=== PATIENT | male | born 1960 | race Caucasian/White ===

== ENCOUNTER 2024-03-14 08:12 | Outpatient (AMB) | payer BC, SELFPAY ==
--- NOTE | 2024-03-14 08:14 | MHC.OFFVIS ---
Vital Signs 03/14/24 08:21 Height 6 ft 10 in Weight 186 lb BMI 19.4 BP 113/79 Blood Pressure Location Rt brachial Position Standing Pulse 104 H Intake Visit Reasons: anal fissures Intake Note: This patient presents for an assessment for anal fissure. Patient c/o; reports excruciating pain, reports no able to sleep, stand or sit, reports Hx sphincterotomy at [facility] 09/11/2023. 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 He states that he had anal fissure surgery in [facility] about 6 months ago. He says that since that time, he has been having this severe constant pain in his anus. He says that this does not seem to be worse with bowel movements. He says the pain is constant and sharp would move from 1 place to the other in his anus He denies seeing blood per rectum. He says that he had been on different medications for this without any relief. He denies being constipated although he has been on Colace. He says that he was admitted to a Behavioral Health unit recently as well because of anxiety and depression. He said that he had seen a psychiatrist for this. [facility] Medical History (Updated 03/14/24 @ 08:37 by Samir Call MD) Anal pain Surgical History Hx of surgical procedure (~09/11/23) Social History Alcohol intake: former Patient Tobacco Use Status: Current everyday Tobacco user Cigarettes Per Day: 10 Substance Use Type: Marijuana Review of Systems Const Denies chills and Denies fever(s) Card Denies chest pain, Denies dyspnea and Denies dyspnea on exertion Resp Denies cough, Denies dyspnea and Denies dyspnea on exertion GI Denies hematochezia and Denies change in bowel habits Denies hematuria and Denies difficulty urinating Musc Denies back pain and Denies limited range of motion Neuro Denies focal weakness and Denies convulsions Psych Details: Severe anxiety and depression Reports anxiety, Reports depression and Denies mood swings Physical Exam Vital Signs: Last Vital Signs Pulse 104 H 03/14/24 08:21 BP 113/79 03/14/24 08:21 BMI result Body Mass Index 19.4 Const Other: Appears extremely anxious, crying General: comfortable Orientation/consciousness: patient oriented x3 Neck Neck: Yes no lymphadenopathy Resp Auscultation: clear to auscultation bilaterally Cardio Rhythm: regular rhythm GI Other: No perianal lesion, retraction of the anal canal does not reveal any obvious posterior midline fissure. Digital rectal exam was done with note of some hypertonicity but he was able to tolerate this. There was no specific area with tenderness. There was no induration. In view of his pain I did not do an anoscopy at this time. There was no blood on the exam finger Palpation (GI): Soft to palpation, nontender and no guarding Neuro General: patient oriented x3 Assessment & Plan Assessment & Plan (1) Anal pain: Code(s): K62.89 - Other specified diseases of anus and rectum Category: Medical Plan: He has had anal pain for more than 6 months now. I was able to retrieve records from [facility] and he had lateral internal sphincterotomy last August,. He states that he has persistent and severe anal pain since that time He does have some hypertonicity although this is not severe. I do not see any obvious posterior midline fissure I will try him on Rectiv again. I told him that it would be best to have good control of his symptoms as this can aggravate his pain level I will see him again in the office in about 2-3 weeks. He is comfortable with the plan. There is a chance that we may need to repeat an exam under anesthesia down the line. Medications: New nitroglycerin 0.4%(w/w) (Rectiv) 1 inch MO BID 30 grams 0RF apply to anal area 3 weeks Coding Level of Care Code New Pt Level 3 (54021) Diagnoses Anal pain K62.89
[2024-03-14 08:21] VITALS: BP 113/79; PULSE 104; BMI 19.4
== END 2024-03-14 08:37 | disposition home or self-care (01) ==
PROVIDERS: PCP Internal Medicine; Visit Provider Surgery
DX: K62.89 Other specified diseases of anus and rectum (principal)
CPT/HCPCS: 99203

== ENCOUNTER → 2024-03-14 08:12 | Outpatient (BNVA) | payer MEDICARE, BC, SELFPAY | PROVIDERS: PCP Internal Medicine; Visit Provider Surgery ==

== ENCOUNTER 2024-07-18 10:11 | Inpatient (IN) | payer MEDICARE, SELFPAY ==
[2024-07-18] VITALS (8 sets, daily range): BP systolic 95–182; BP diastolic 69–89; PULSE 54–111; RESP 14–24; TEMP 36–36.9; O2SAT 97–99; BMI 24.4
--- NOTE | ~2024-07-18 | CT_ITS ---
EXAMINATION: CT PELVIS WITH CONTRAST CLINICAL INFORMATION: Severe left-sided rectal pain. COMPARISON: None available. TECHNIQUE: Helical scanning was performed with submillimeter collimation through the pelvis with the use of oral contrast and during bolus intravenous injection of 85 mL of Omnipaque 350 intravenous contrast. Sagittal and coronal multiplanar 2-D reconstructions were obtained. This CT examination was performed using dose optimization techniques as appropriate, variously including the following: *Automated exposure control *Adjustment of mA and/or kV according to patient size (this includes techniques or standardized protocols for targeted exams where dose is matched to indication/reason for exam; i.e. extremities or head) *Use of iterative reconstruction technique DLP: 230 mGy-cm FINDINGS: Gastrointestinal: Numerous diverticula of the sigmoid colon with mild diffuse thickening of the bowel wall. Small area of subtle edema in the pericolonic fat at the mid sigmoid. Possible mild diverticulitis. No perforation or abscess. No bowel obstruction. Moderate volume stool in the colon. Visualized small bowel loops unremarkable. The appendix is nonvisualized. Bladder: Unremarkable. Pelvic structures: Prostate enlarged measuring 6 cm transverse. Coarse calcifications in the prostate. Vascular: Scattered vascular wall calcifications. No aneurysm. Abdominal wall: No ventral wall hernia or inguinal hernia. Other: Partially visualized cystic lesion with peripheral calcification lower pole right kidney measuring 2.7 cm. This can be further evaluated with CT renal exam. Lymph nodes: No significant lymphadenopathy. Skeletal: Mild degenerative change at the lumbosacral junction. No acute osseous abnormality. CT/CT pelvis w IV con IMPRESSION: 1. Numerous diverticula of the sigmoid colon with mild diffuse thickening of the bowel wall. Small area of subtle edema in the pericolonic fat at the mid sigmoid. Possible mild diverticulitis. No perforation or abscess. 2. Partially visualized cystic lesion with peripheral calcification lower pole right kidney measuring 2.7 cm. This can be further evaluated with CT renal exam. Electronically signed by: Tyler Hernandez MD 07/18/2024 04:18 PM EDT
[2024-07-18 10:46] LABS: MANUAL DIFF FLAG NO
[2024-07-18 10:50] LABS: Basophils Absolute Auto 0.1 X10*3/uL (0.0-0.2); Basophils Percent Auto 0.8 % (0-2); Eosinophils Absolute Auto 0.1 X10*3/uL (0.0-0.4); Eosinophils Percent Auto 1.3 % (0-4); Hematocrit 43.8 % (42.0-52.0); Hemoglobin 15.5 g/dl (14.0-18.0); Imm Gran Abs Auto 0.02 X10*3/uL (0.00-0.03); Imm Gran Pct Auto 0.2 % (0.0-0.4); Lymphocytes Absolute Auto 1.7 X10*3/uL (1.2-4.9); Lymphocytes Percent Auto 20.5 % (20-40); Mean Corpuscular HGB Conc 35.4 g/dl (31.0-36.0); Mean Corpuscular Hemoglobin 30.6 pg (27.0-33.0); Mean Corpuscular Volume 86.4 fL (80.0-98.0); Mean Platelet Volume 9.7 fL (9.4-12.4); Monocytes Absolute Auto 0.6 X10*3/uL (0.1-1.2); Monocytes Percent Auto 7.6 % (2-11); Neutrophils Absolute Auto 5.7 x10*3/uL (2.0-8.3); Neutrophils Percent Auto 69.6 % (45-73); Platelet Count 276 X10*3/uL (160-400); Red Blood Count 5.07 X10*6/uL (4.60-5.80); Red Cell Distribution Width 13.5 % (11.0-16.0); White Blood Count 8.2 X10*3/uL (4.8-10.8)
--- NOTE | 2024-07-18 10:57 | ED.MALEGU ---
HPI - Male Genitourinary General Chief complaint: Urogenital-Male Stated complaint: Rectal pain Time Seen by Provider: 07/18/24 10:57 Source: patient Mode of arrival: ambulatory Limitations: no limitations History of Present Illness ED Provider: Miguel Muñoz PA-C HPI Narrative: 64 y/o with history of anal fissue s/p schinctotomy in Aug 2023 at [facility], s/p pelvic floor PT, who presents to the ER for evaluation of acute on chronic rectal pain. States the pain worsened 3 weeks ago. He states the pain is worse on the left side and is ?off the charts. ? he has been taking oxycodone with minimal relief. He denies any constipation, has been taking laxatives and stool softeners. He states he has been to [facility] ER several times where they tell him nothing is wrong. He reports new onset pain in his penis 2 days ago, went to an urgent care where they started him on antibiotics. Reports ongoing severe left-sided rectal pain and penile pain. Described as a pressure. No scrotal pain or swelling. He has nausea but no vomiting or diarrhea. No abdominal pain. No rectal bleeding. MD Complaint: other (severe rectal pain) Onset (ago): week(s) (3) Related Data Home Medications ?Medication ?Instructions ?Recorded ?Confirmed alprazolam 0.5 mg tablet 0.5 mg PO DAILY 03/14/24 03/14/24 baclofen 10 mg tablet 10 mg PO TID 03/14/24 03/14/24 oxycodone 5 mg tablet 5 mg PO BID PRN 03/14/24 03/14/24 sertraline 100 mg tablet 100 mg PO DAILY 03/14/24 03/14/24 simvastatin 10 mg tablet 10 mg PO BEDTIME 03/14/24 03/14/24 Previous Rx's ?Medication ?Instructions ?Recorded nitroglycerin 0.4 % (w/w) rectal 1 inch ME BID apply to anal area 3 03/14/24 ointment (Rectiv) weeks #30 grams Allergies Allergy/AdvReac Type Severity Reaction Status Date / Time No Known Allergies Allergy Verified 07/18/24 10:23 Review of Systems Review of Systems: Yes all other systems are reviewed and are negative PMFSH Past Medical History Medical History Anal pain Surgical History Hx of surgical procedure (~09/11/23) Social History Social History Alcohol intake: former Patient Tobacco Use Status: Current everyday Tobacco user Cigarettes Per Day: 10 Substance Use Type: Marijuana Advance Directives: No Advance Directives Information Provided: Yes Physical Exam Vital Signs: Vital Signs: Last Vital Signs Temp 97.8 F 07/18/24 15:47 Pulse 54 07/18/24 16:04 Resp 18 07/18/24 16:04 BP 182/89 H 07/18/24 16:04 Pulse Ox 99 07/18/24 16:04 O2 Del Method Room Air 07/18/24 16:04 BMI result Body Mass Index 24.4 Appearance: Alert. Oriented X3. laying on his side on the stretcher, tearful in excruciating pain Head: normocephalic, atraumatic. Eyes: Pupils equal, round and reactive to light. ENT: Pharynx normal. No tonsillar swelling or exudate. Neck: Normal inspection. Neck supple. CVS: Normal heart rate and rhythm. Pulses normal. Respiratory: No respiratory distress. Breath sounds normal. Abdomen: Soft and nontender. +BS x4 ULISSES: Skin: Skin warm and dry. Normal skin color. Normal skin turgor. No rashes. Extremities: No lower extremity edema. No joint swelling. Neuro/psych: Oriented X 3. grossly nonfocal. CN II-XII intact. Normal speech and cognition. Medications Administered Discontinued Medications Generic Name Dose Route Start Last Admin Trade Name Freedom PRN Reason Stop Dose Admin Fentanyl 50 mcg 07/18/24 15:53 07/18/24 16:00 Fentanyl Citrate/Pf 100 Mcg/2 Ml Vial IVPUSH 07/18/24 15:54 50 mcg ONCE ONE Administration Protocol Hydromorphone HCl 1 mg 07/18/24 11:55 07/18/24 12:03 Hydromorphone Hcl 1 Mg/Ml Syringe IVPUSH 07/18/24 11:56 1 mg ONCE ONE Administration Protocol Hydromorphone HCl 1 mg 07/18/24 14:08 07/18/24 14:15 Hydromorphone Hcl 1 Mg/Ml Syringe IVPUSH 07/18/24 14:09 1 mg ONCE ONE Administration Protocol Sodium Chloride 1,000 mls @ 999 mls/hr 07/18/24 11:15 07/18/24 12:04 Ns IVCONT 07/18/24 12:15 Infused .Q1H1M AKIL Infusion Iohexol 85 ml 07/18/24 14:50 07/18/24 14:53 Iohexol 350 Mg/Ml 75 Ml Infus..Btl IV 07/18/24 14:51 85 ml ONCE ONE Administration Lidocaine HCl 1 appl 07/18/24 11:32 07/18/24 12:02 Lidocaine 4 % Cream Kit TOPICAL 07/18/24 11:33 1 appl ONCE ONE Administration Protocol Morphine Sulfate 4 mg 07/18/24 11:08 07/18/24 11:19 Morphine Sulfate 4 Mg/Ml Cartridge IVPUSH 07/18/24 11:09 4 mg ONCE ONE Administration Protocol Ondansetron HCl 4 mg 07/18/24 11:08 07/18/24 11:18 Ondansetron Hcl 4 Mg/2 Ml Vial IVPUSH 07/18/24 11:09 4 mg ONCE ONE Administration Medical Decision Making Medical Decision Making MDM Narrative: 64 y/o with history of anal fissue s/p schinctotomy in Aug 2023 at [facility], s/p pelvic floor PT, who presents to the ER for evaluation of acute on chronic rectal pain. On arrival to the ER patient is in severe excruciating pain, lying on his stomach in the exam room. Tearful. He is tachycardic to 111, blood pressure soft but stable. He is afebrile. External rectal exam is not significantly abnormal with no palpable external swelling fluctuance or induration. No erythema or drainage. IV was established and he was given IV morphine and Zofran. Lab workup was showing a normal CBC with no leukocytosis. Other metabolic workup is unremarkable, LFTs, electrolytes, renal function are all normal. Inflammatory markers are normal. Additional pain medications required for ongoing severe rectal pain. No significant abdnormalities on ULISSES, although he did not tolerate it well due to severe pain. Surgery recommending CT scan of the pelvis which was done - showing possible mild diverticulitis. no rectal or pelvic abnormalities. No evidence of sepsis. No fevers or leukocytosis. Tachycardia on arrival thought to be due to severe pain. Empiric dose of Zosyn was given. Patient re-evaluated after 4 doses of IV narcotics and he continues to be in severe rectal pain. will plan to admit for pain control. Differential Diagnosis Differential Diagnoses: The differential diagnosis associated with the presentation includes Recurrent anal fissure, rectal mass, rectal cancer, perirectal abscess, prostatitis, hemorrhoid, UTI Admission/Observation Consideration of admission/observation: Escalation of care including admission/observation considered Consult Healthcare Provider Management of the patient was discussed with: Hospitalist and Wood Filler Dr. Call and Dr. Alfaro Lab Data MDM Lab Attestation statement: I reviewed the patient's lab results. Normal CBC, normal electrolyte 07/18/24 10:42 07/18/24 10:42 Labs: Lab Results 07/18/24 07/18/24 Range/Units 10:42 11:21 WBC 8.2 (4.8-10.8) X10*3/uL RBC 5.07 (4.60-5.80) X10*6/uL Hgb 15.5 (14.0-18.0) g/dl Hct 43.8 (42.0-52.0) % MCV 86.4 (80.0-98.0) fL MCH 30.6 (27.0-33.0) pg MCHC 35.4 (31.0-36.0) g/dl RDW 13.5 (11.0-16.0) % Plt Count 276 (160-400) X10*3/uL MPV 9.7 (9.4-12.4) fL Immature Gran % (Auto) 0.2 (0.0-0.4) % Neut % (Auto) 69.6 (45-73) % Lymph % (Auto) 20.5 (20-40) % [place] % (Auto) 7.6 (2-11) % Eos % (Auto) 1.3 (0-4) % Baso % (Auto) 0.8 (0-2) % Lymph # (Auto) 1.7 (1.2-4.9) X10*3/uL [place] # (Auto) 0.6 (0.1-1.2) X10*3/uL Eos # (Auto) 0.1 (0.0-0.4) X10*3/uL Baso # (Auto) 0.1 (0.0-0.2) X10*3/uL Abs Immat Gran (auto) 0.02 (0.00-0.03) X10*3/uL Absolute Neuts (auto) 5.7 (2.0-8.3) x10*3/uL Absolute Nucleated RBC 0.000 (0.0-0.012) X10*3/uL Nucleated RBC % (auto) 0.0 (0.0-0.2) /100WBC ESR 2 (0-15) MM/HR Sodium 142 (135-145) mmol/L Potassium 3.6 (3.3-5.1) mmol/L Chloride 107 (96-108) mmol/L Carbon Dioxide 26 (22-29) mmol/L Anion Gap 13 (12-20) BUN 14 (9-16) mg/dL Creatinine 0.73 (0.5-1.4) mg/dL Estim Creat Clear Calc 109.2 Estimated GFR > 60 Random Glucose 126 H (60-115) mg/dL Calcium 10.0 (8.4-10.2) mg/dL Total Bilirubin 0.6 (0.0-1.0) mg/dL AST 9 (5-37) U/L ALT 10 (0-40) U/L Alkaline Phosphatase 61 (39-117) U/L C-Reactive Protein < 0.04 (< or = 0.50) mg/dL Total Protein 7.2 (6.5-8.0) g/dL Albumin 4.7 (3.5-5.0) g/dL Urine Color Yellow Urine Appearance Clear Urine pH 5.5 (5.0-9.0) Ur Specific [place] >= 1.030 H (1.005-1.025) Urine Protein Negative (Neg-Trace) mg/dL Urine Glucose (UA) Negative (Negative) mg/dL Urine Ketones 15 (Negative) mg/dL Urine Blood Negative (Negative) Urine Nitrite Negative (Negative) Ur Leukocyte Esterase Negative (Negative) Independent Interpretation I performed an independent interpretation of an: CT Scan Interpretation: no perirectal massess or stranding Radiology Impression Discussion of test interpretation with radiology: I have reviewed the radiologist's reading. Radiologist Impression: CT/CT pelvis w IV con IMPRESSION: 1. Numerous diverticula of the sigmoid colon with mild diffuse thickening of the bowel wall. Small area of subtle edema in the pericolonic fat at the mid sigmoid. Possible mild diverticulitis. No perforation or abscess. 2. Partially visualized cystic lesion with peripheral calcification lower pole right kidney measuring 2.7 cm. This can be further evaluated with CT renal exam. External Record Review External record reviewed: Office record, Outpatient record, Prior outpatient labs and Prior outpatient radiology Prescription Management I considered prescription management with: Pain Medication and Antibiotic Chronic Conditions Patient?s care impacted by: Other (Anal fissure, depression, anxiety) Critical Care Time Critical Care Time Critical Care Time: Yes Total Critical Care Time: 43 Attestation: I have personally provided critical care time exclusive of time spent on separately billable procedures. Time includes review of lab data, radiology results, discussion with consultants, bedside evaluation after multiple doses of IV narcotic administration and monitoring for potential decompensation. Intervention performed as documented. Discharge Plan Discharge Clinical Impression: Rectal pain, Diverticulitis Patient Disposition: Admitted As Inpatient Print Language: Tajik
[2024-07-18 11:05] LABS: Alanine Aminotransferase 10 U/L (0-40); Albumin Level 4.7 g/dL (3.5-5.0); Alkaline Phosphatase 61 U/L (39-117); Anion Gap 13 (12-20); Aspartate Amino Transferase 9 U/L (5-37); Bilirubin Total 0.6 mg/dL (0.0-1.0); Blood Urea Nitrogen 14 mg/dL (9-16); Carbon Dioxide 26 mmol/L (22-29); Chloride 107 mmol/L (96-108); Creatinine Clr Calc Pharmacy 109.2; Estimated Glomerular Filt Rate > 60; Glucose Random 126 mg/dL (60-115); Potassium 3.6 mmol/L (3.3-5.1); Sodium 142 mmol/L (135-145); Total Protein 7.2 g/dL (6.5-8.0)
[2024-07-18] MEDS: ondansetron HCL 4 MG/2 ML VIAL IVPUSH ×2 (11:18→18:44)
[2024-07-18] MEDS: Morphine Sulfate 4 MG/ML CARTRIDGE IVPUSH (11:19)
[2024-07-18] MEDS: 0.9 % Sodium Chloride 1,000 ML 999 ML IVCONT (11:20)
--- NOTE | 2024-07-18 11:22 | PC.NURSE ---
VS updated. Pt medicated for pain per order. Urine obtained/sent to lab. IVF bolus hung.
[2024-07-18 11:33] LABS: Appearance Urine Clear; Color Urine Yellow; Glucose Urine UA Negative (Negative); Leukocyte Esterase Urine Negative (Negative); Nitrite Urine Negative (Negative); PH 5.5 (5.0-9.0); Specific Gravity - Urine >= 1.030 (1.005-1.025); Urine Blood Negative (Negative); Urine Ketones 15 mg/dL (Negative); Urine Protein Negative (Neg-Trace)
[2024-07-18] MEDS: Lidocaine 4 % Cream KIT 1 APPL TOPICAL (12:02)
[2024-07-18] MEDS: HYDROmorphone HCl 1 MG/ML SYRINGE IVPUSH ×2 (12:03→14:15)
[2024-07-18 12:04] LABS: C Reactive Protein < 0.04 mg/dL (< or = 0.50)
[2024-07-18 12:27] LABS: Erythrocyte Sedimentation Rate 2 MM/HR (0-15)
--- NOTE | 2024-07-18 14:19 | PC.NURSE ---
Pt medicated for pain per MAR.
[2024-07-18] MEDS: iohexoL 350 MG/ML 75 ML INFUS..BTL 85 ML IV (14:53)
[2024-07-18] MEDS: fentaNYL citrate/PF 100 MCG/2 ML VIAL 50 MCG IVPUSH (16:00)
--- NOTE | 2024-07-18 16:04 | PC.NURSE ---
patient medicated with IV fentanyl at 1600. alert and oriented, respirations even and unlabored.
--- NOTE | 2024-07-18 16:08 | PC.NURSE ---
patient resting on stretcher, maintaining adequate oxygen saturation
--- NOTE | 2024-07-18 16:15 | PC.NURSE ---
patient resting on stretcher, respirations even and unlabored, still endorsing 10/10 pain however will then close his eyes and fall asleep. VSS at this time.
[2024-07-18] MEDS: Ketorolac Tromethamine 30 MG/ML VIAL IVPUSH (17:57)
[2024-07-18] MEDS: Piperacillin Sodium/Tazobactam 3.375 GM in 0.9 % Sodium Chloride 50 ML IV (17:58)
--- NOTE | 2024-07-18 18:32 | PM.IMHP ---
History of Present Illness Date of Service: 07/18/24 Chief Complaint: perianal pain 64yo M with hx of anal fissure s/p lateral sphincterotomy at [facility] [place] [facility] [place] 2023 and has had anal pain since but over the last 3 weeks it has become much worse. It is severe and radiates from the anus to the penis, stabbing/sharp/pulsating in nature. No diarrhea or constipation; he is on stool softeners. He has no relief from oxycodone. No dysuria, scrotal swelling, or testicular pain. No BRBPR or melena. In the ED, he has 10/10 pain despite total of 4 mg of morphine IV, 50 mcg of fentanyl IV, and 2 mg of hydromorphone IV. He did not tolerate ULISSES. Pelvic CT with contrast showed mild diverticulitis mid-sigmoid; no perforation or abscess; incidental R kidney cyst. Review of Systems Review of Systems: Yes all other systems are reviewed and are negative [facility] Medical History Anal pain Surgical History Hx of surgical procedure (~09/11/23) Social History Alcohol intake: former Patient Tobacco Use Status: Current everyday Tobacco user Cigarettes Per Day: 10 Substance Use Type: Marijuana Advance Directives: No Advance Directives Information Provided: Yes Meds Allergies Allergy/AdvReac Type Severity Reaction Status Date / Time No Known Allergies Allergy Verified 07/18/24 10:23 Active Medications: Current Medications Acetaminophen (Acetaminophen 325 Mg Tablet) 650 mg PO Q6H PRN PRN Reason: Pain, Mild (Pain Scale 1-3), fever or headache Calcium Carbonate (Calcium Carbonate 750 Mg Tab.Chew) 750 mg PO Q4H PRN PRN Reason: Heartburn Hydromorphone HCl (Hydromorphone Hcl 1 Mg/Ml Syringe) 1.5 mg IVPUSH Q2H PRN; Protocol PRN Reason: Pain, Severe (Pain Scale 7-10) Piperacillin Sod/Tazobactam (Sod 3.375 gm/ Sodium Chloride) 50 mls @ 100 mls/hr IV Q6H AKIL Lactated Ringer's (Lr) 1,000 mls @ 100 mls/hr IVCONT .Q10H [facility] Magnesium Hydroxide (Milk Of Magnesia 30 Ml Oral.Susp) 30 ml PO DAILY PRN PRN Reason: Constipation Melatonin (Melatonin 3 Mg Tablet) 6 mg PO BEDTIME PRN PRN Reason: Insomnia Naloxone HCl (Naloxone Hcl 0.4 Mg/Ml Vial) 0.1 mg IVPUSH Q5M PRN PRN Reason: Respiratory Rate < 10 Ondansetron HCl (Ondansetron Hcl 4 Mg/2 Ml Vial) 4 mg IVPUSH Q4H PRN PRN Reason: Nausea and Vomiting Oxycodone HCl (Oxycodone Hcl Immed Release 5 Mg Tablet) 10 mg PO Q4H PRN PRN Reason: Pain, Moderate(Pain Scale 4-6) Sodium Chloride (0.9 % Sodium Chloride Flush 3 Ml Syringe) 3 ml IVFLUSH QSHIFT [facility] Home Medications ?Medication ?Instructions ?Recorded ?Confirmed ?Last Taken ?Type alprazolam 0.5 mg tablet 0.5 mg PO DAILY 03/14/24 03/14/24 Unknown History baclofen 10 mg tablet 10 mg PO TID 03/14/24 03/14/24 Unknown History oxycodone 5 mg tablet 5 mg PO BID PRN 03/14/24 03/14/24 Unknown History sertraline 100 mg tablet 100 mg PO DAILY 03/14/24 03/14/24 Unknown History simvastatin 10 mg tablet 10 mg PO BEDTIME 03/14/24 03/14/24 Unknown History Physical Exam Vital Signs and Narrative: Vital Signs: Last Vital Signs Temp 97.9 F 07/18/24 18:17 Pulse 56 07/18/24 18:17 Resp 18 07/18/24 18:17 BP 163/81 H 07/18/24 18:17 Pulse Ox 97 07/18/24 18:17 O2 Del Method Room Air 07/18/24 18:17 BMI result Body Mass Index 24.4 Gen: in exquisite pain HEENT: sclera anicteric, moist mucus membranes Neck: supple Lungs: clear to auscultation bilaterally Heart: regular rate and rhythm, no murmurs Abd: soft, non-tender, non-distended, ULISSES deferred : no scrotal swelling, no testicular masses Ext: no edema Skin: warm/well-perfused Neuro: alert and oriented x3, no focal findings Psych: appropriate affect Results Labs 07/18/24 10:42 07/18/24 10:42 Labs: Laboratory Results - last 24 hr 07/18/24 07/18/24 10:42 11:21 MCV 86.4 MCH 30.6 MCHC 35.4 RDW 13.5 Plt Count 276 MPV 9.7 Immature Gran % (Auto) 0.2 Neut % (Auto) 69.6 Lymph % (Auto) 20.5 [place] % (Auto) 7.6 Eos % (Auto) 1.3 Baso % (Auto) 0.8 Lymph # (Auto) 1.7 [place] # (Auto) 0.6 Eos # (Auto) 0.1 Baso # (Auto) 0.1 Abs Immat Gran (auto) 0.02 Absolute Neuts (auto) 5.7 Absolute Nucleated RBC 0.000 Nucleated RBC % (auto) 0.0 ESR 2 Anion Gap 13 Estim Creat Clear Calc 109.2 Estimated GFR > 60 Random Glucose 126 H Calcium 10.0 Total Bilirubin 0.6 AST 9 ALT 10 Alkaline Phosphatase 61 C-Reactive Protein < 0.04 Total Protein 7.2 Albumin 4.7 Urine Color Yellow Urine Appearance Clear Urine pH 5.5 Ur Specific [place] >= 1.030 H Urine Protein Negative Urine Glucose (UA) Negative Urine Ketones 15 Urine Blood Negative Urine Nitrite Negative Ur Leukocyte Esterase Negative Imaging Radiologist's Impressions: Impressions Pelvis CT 07/18/24 14:42 IMPRESSION: 1. Numerous diverticula of the sigmoid colon with mild diffuse thickening of the bowel wall. Small area of subtle edema in the pericolonic fat at the mid sigmoid. Possible mild diverticulitis. No perforation or abscess. 2. Partially visualized cystic lesion with peripheral calcification lower pole right kidney measuring 2.7 cm. This can be further evaluated with CT renal exam. Electronically signed by: Tyler Hernandez MD 07/18/2024 04:18 PM EDT RP Assessment and Plan (1) Anal pain: Status: Acute (2) Rectal pain: Status: Acute (3) Diverticulitis: Status: Acute Plan 64yo M with hx anal fissure s/p lateral sphincterotomy in Aug 2023 with pain since then presenting with acute worsening of anal pain radiating to penis over last 3 wk. anal pain - suspect will need EUA, admit to M/S, give APAP/oxycodone/hydromorphone for mild/mod/sev pain, continue lidocaine ointment as well, Surgery consult in AM, NPO p MN HLD - statin mood disorder - sertraline VTE ppx - SCDs code - full I anticipate that the patient will stay at least 2 midnights as an inpatient in the hospital due to the above reasons. It is neither reasonable nor safe to care for them in a less acute setting. Quality Stroke Does the patient have a stroke diagnosis?: No VTE Prior VTE?: No VTE Risk Level:: Medical - moderate - high VTE Device Contraindication: N/A - Device Ordered VTE Drug Contraindication: N/A - Med Ordered
--- NOTE | 2024-07-18 18:42 | PHA.MEDREC ---
Pharmacy Consult ? Medication Reconciliation Pharmacy has completed the medication reconciliation. Spoke to patient and confirmed medication list. Patient said he is still taking simvastatin and he's no longer taking quetiapine.
[2024-07-18] MEDS: HYDROmorphone HCl 1 MG/ML SYRINGE 1.5 MG IVPUSH (18:44)
[2024-07-18] MEDS: Lactated Ringers 1,000 ML 100 ML IVCONT (18:49)
[2024-07-18 18:56] LABS: OBS Int Ctl Valid YES; OBS1 NEGATIVE (NEGATIVE)
[2024-07-18] MEDS: TiZANidine HCL 4 MG TABLET PO (19:12)
[2024-07-18] MEDS: Atorvastatin Calcium 10 MG TABLET PO (20:27)
[2024-07-18] MEDS: Docusate Sodium 100 MG CAPSULE 200 MG PO (20:27)
[2024-07-18] MEDS: ALPRAZolam 0.5 MG TABLET PO (20:27)
[2024-07-19] VITALS (15 sets, daily range): BP systolic 111–180; BP diastolic 58–84; PULSE 54–79; RESP 14–20; TEMP 36.4–37.6; O2SAT 96–98; BMI 23.2
[2024-07-19] MEDS: Piperacillin Sodium/Tazobactam 3.375 GM in 0.9 % Sodium Chloride 50 ML IV ×4 (00:55→18:24)
[2024-07-19] MEDS: HYDROmorphone HCl 1 MG/ML SYRINGE 1.5 MG IVPUSH ×5 (00:56→22:23)
[2024-07-19] MEDS: 0.9 % Sodium Chloride Flush 3 ML SYRINGE IVFLUSH ×2 (01:26→09:48)
[2024-07-19] MEDS: TiZANidine HCL 4 MG TABLET PO ×3 (02:46→18:24)
[2024-07-19] MEDS: Lactated Ringers 1,000 ML 100 ML IVCONT ×2 (04:07→22:22)
[2024-07-19] MEDS: ondansetron HCL 4 MG/2 ML VIAL IVPUSH (05:22)
--- NOTE | 2024-07-19 09:14 | PM.CNGS ---
History of Present Illness Consult details Consult date: 07/19/24 <Samir Call MD - Last Filed: 07/22/24 14:38> Narrative: 64-year-old male admitted because of severe anal pain. He had undergone sphincterotomy for an anal fissure in [place] in August,. He says that he continued to have significant anal pain. I had actually seen him in the office last Feb, 2024. I had tried him on nitroglycerin topical for his severe pain in the anal area but he did not follow-up thereafter. He says he had seen other surgeons in [place] he was told that he had ?spasms?. He has had severe pain for the past 3 weeks. He says that this is seemed to be sharp, like a knife cutting his anus especially after bowel movements. He states his pain often radiates to his perineum and penis. Occasionally sees small amounts of blood on wiping. <Samir Call MD - Last Filed: 07/22/24 14:38> Review of Systems Constitutional: Constitutional: Denies chills and Denies fever(s) <Samir Call MD - Last Filed: 07/22/24 14:38> Cardiovascular: Cardiovascular: Denies chest pain, Denies dyspnea and Denies dyspnea on exertion <Samir Call MD - Last Filed: 07/22/24 14:38> Respiratory: Respiratory: Denies cough, Denies dyspnea and Denies dyspnea on exertion <Samir Call MD - Last Filed: 07/22/24 14:38> Gastrointestinal: Gastrointestinal: Denies hematochezia and Denies change in bowel habits <Samir Call MD - Last Filed: 07/22/24 14:38> Genitourinary: Genitourinary: Denies hematuria and Denies difficulty urinating <Samir Call MD - Last Filed: 07/22/24 14:38> Musculoskeletal: Musculoskeletal: Denies back pain and Denies limited range of motion <Samir Call MD - Last Filed: 07/22/24 14:38> Neurologic: Denies focal weakness and Denies convulsions <Samir Call MD - Last Filed: 07/22/24 14:38> Psychiatric: Psychiatric: Denies depression and Denies mood swings <Samir Call MD - Last Filed: 07/22/24 14:38> PMFSH Past Medical History Medical History: Medical History Hypercholesteremia Anal pain <Samir Call MD - Last Filed: 07/22/24 14:38> Surgical History Surgical History: Surgical History Hx of surgical procedure (~09/11/23) <Samir Call MD - Last Filed: 07/22/24 14:38> Social History Social History: Social History Household Members: None Housing: Apartment Alcohol intake: former Patient Tobacco Use Status: Current everyday Tobacco user Tobacco use type: Cigarette Cigarette Packs Per Day: 1.5 Cigarettes Per Day: 30.0 Substance Use Type: Marijuana service: No <Samir Call MD - Last Filed: 07/22/24 14:38> Meds Allergies/Adverse reactions: Allergies Allergy/AdvReac Type Severity Reaction Status Date / Time No Known Allergies Allergy Verified 07/18/24 10:23 <Samir Call MD - Last Filed: 07/22/24 14:38> Active Medications: Current Medications Acetaminophen (Acetaminophen 325 Mg Tablet) 650 mg PO Q6H PRN PRN Reason: Pain, Mild (Pain Scale 1-3), fever or headache Alprazolam (Alprazolam 0.5 Mg Tablet) 0.5 mg PO DAILY PRN PRN Reason: Anxiety Last Admin: 07/18/24 20:27 Dose: 0.5 mg Atorvastatin Calcium (Atorvastatin Calcium 10 Mg Tablet) 10 mg PO BEDTIME AKIL Last Admin: 07/18/24 20: Dose: 10 mg Calcium Carbonate (Calcium Carbonate 750 Mg Tab.Chew) 750 mg PO Q4H PRN PRN Reason: Heartburn Docusate Sodium (Docusate Sodium 100 Mg Capsule) 200 mg PO BEDTIME AKIL Last Admin: 07/18/24 20: Dose: 200 mg Hydromorphone HCl (Hydromorphone Hcl 1 Mg/Ml Syringe) 1.5 mg IVPUSH Q2H PRN; Protocol PRN Reason: Pain, Severe (Pain Scale 7-10) Last Admin: 07/19/24 04:07 Dose: 1.5 mg Piperacillin Sod/Tazobactam (Sod 3.375 gm/ Sodium Chloride) 50 mls @ 100 mls/hr IV Q6H [facility] Last Infusion: 07/19/24 05:57 Dose: Infused Lactated Ringer's (Lr) 1,000 mls @ 100 mls/hr IVCONT .Q10H [facility] Last Admin: 07/19/24 04:07 Dose: 100 mls/hr Lidocaine HCl (Lidocaine 4 % Cream Kit) 1 appl TOPICAL DAILY [facility]; Protocol Magnesium Hydroxide (Milk Of Magnesia 30 Ml Oral.Susp) 30 ml PO DAILY PRN PRN Reason: Constipation Melatonin (Melatonin 3 Mg Tablet) 6 mg PO BEDTIME PRN PRN Reason: Insomnia Naloxone HCl (Naloxone Hcl 0.4 Mg/Ml Vial) 0.1 mg IVPUSH Q5M PRN PRN Reason: Respiratory Rate < 10 Ondansetron HCl (Ondansetron Hcl 4 Mg/2 Ml Vial) 4 mg IVPUSH Q4H PRN PRN Reason: Nausea and Vomiting Last Admin: 07/19/24 05:22 Dose: 4 mg Oxycodone HCl (Oxycodone Hcl Immed Release 5 Mg Tablet) 10 mg PO Q4H PRN PRN Reason: Pain, Moderate(Pain Scale 4-6) Polyethylene Glycol (Polyethylene Glycol 3350 17 Gm Powd.Pack) 17 gm PO DAILY [facility] Sertraline HCl (Sertraline Hcl 100 Mg Tablet) 100 mg PO DAILY [facility] Sodium Chloride (0.9 % Sodium Chloride Flush 3 Ml Syringe) 3 ml IVFLUSH QSHIFT [facility] Last Admin: 07/19/24 01:26 Dose: 3 ml Tizanidine HCl (Tizanidine Hcl 4 Mg Tablet) 4 mg PO Q8H [facility] Last Admin: 07/19/24 02:46 Dose: 4 mg <Samir Call MD - Last Filed: 07/22/24 14:38> Home medications: Home Medications ?Medication ?Instructions ?Recorded ?Confirmed ?Last Taken ?Type alprazolam 0.5 mg tablet 0.5 mg PO DAILY PRN Anxiety 03/14/24 07/18/24 Unknown History oxycodone 5 mg tablet 5 mg PO BID PRN Pain 03/14/24 07/18/24 Unknown History sertraline 100 mg tablet 100 mg PO DAILY 03/14/24 07/18/2407/17/24 History simvastatin 10 mg tablet 10 mg PO BEDTIME 03/14/24 07/18/24 07/17/24 History docusate sodium 100 mg capsule 200 mg PO BEDTIME 07/18/24 07/18/24 07/17/24 History doxycycline monohydrate 100 mg 100 mg PO BID 07/18/24 07/18/24 07/17/24 History tablet polyethylene glycol 3350 17 17 g PO DAILY 07/18/24 07/18/24 07/17/24 History gram/dose oral powder tizanidine 4 mg tablet 4 mg PO Q8H 07/18/24 07/18/24 07/17/24 History <Samir Call MD - Last Filed: 07/22/24 14:38> Physical Exam Vital Signs: Vital Signs: Last Vital Signs Temp 99.7 F 07/19/24 07:23 Pulse 58 07/19/24 07:23 Resp 18 07/19/24 07:23 BP 144/73 H 07/19/24 07:23 Pulse Ox 98 07/19/24 07:23 O2 Del Method Room Air 07/19/24 07:23 BMI result Body Mass Index 23.2 <Samir Call MD - Last Filed: 07/22/24 14:38> Const: Other: Complains of pain in the anus and appears uncomfortable <Samir Call MD - Last Filed: 07/22/24 14:38> Resp: Effort & Inspection: normal respiratory effort <Samir Call MD - Last Filed: 07/22/24 14:38> Cardio: Rate: regular rate <Samir Call MD - Last Filed: 07/22/24 14:38> GI: Other: No obvious perianal lesion on rectal exam but he is in severe pain so I was able to do digital exam or anoscopy <Samir Call MD - Last Filed: 07/22/24 14:38> Palpation (GI): Soft to palpation and nontender <Samir Call MD - Last Filed: 07/22/24 14:38> Results Labs Result diagrams: 07/18/24 10:42 07/18/24 10:42 <Samir Call MD - Last Filed: 07/22/24 14:38> Labs: Abnormal lab results 07/18/24 07/18/24 Range/Units 10:42 11:21 Random Glucose 126 H (60-115) mg/dL Ur Specific [place] >= 1.030 H (1.005-1.025) Short CBC 07/18/24 Range/Units 10:42 WBC 8.2 (4.8-10.8) X10*3/uL Hgb 15.5 (14.0-18.0) g/dl Hct 43.8 (42.0-52.0) % Plt Count 276 (160-400) X10*3/uL BMP 07/18/24 10:42 Sodium 142 Potassium 3.6 Chloride 107 Carbon Dioxide 26 BUN 14 Creatinine 0.73 Calcium 10.0 Liver Function 07/18/24 Range/Units 10:42 Total Bilirubin 0.6 (0.0-1.0) mg/dL AST 9 (5-37) U/L ALT 10 (0-40) U/L Alkaline Phosphatase 61 (39-117) U/L Albumin 4.7 (3.5-5.0) g/dL Urine 07/18/24 Range/Units 11:21 Urine Color Yellow Urine Appearance Clear Urine pH 5.5 (5.0-9.0) Ur Specific [place] >= 1.030 H (1.005-1.025) Urine Protein Negative (Neg-Trace) mg/dL Urine Glucose (UA) Negative (Negative) mg/dL All other labs normal. Laboratory Results WBC 8.2 X10*3/uL (4.8-10.8) 07/18/24 10:42 RBC 5.07 X10*6/uL (4.60-5.80) 07/18/24 10:42 Hgb 15.5 g/dl (14.0-18.0) 07/18/24 10:42 Hct 43.8 % (42.0-52.0) 07/18/24 10:42 MCV 86.4 fL (80.0-98.0) 07/18/24 10:42 MCH 30.6 pg (27.0-33.0) 07/18/24 10:42 MCHC 35.4 g/dl (31.0-36.0) 07/18/24 10:42 RDW 13.5 % (11.0-16.0) 07/18/24 10:42 Plt Count 276 X10*3/uL (160-400) 07/18/24 10:42 MPV 9.7 fL (9.4-12.4) 07/18/24 10:42 Immature Gran % (Auto) 0.2 % (0.0-0.4) 07/18/24 10:42 Neut % (Auto) 69.6 % (45-73) 07/18/24 10:42 Lymph % (Auto) 20.5 % (20-40) 07/18/24 10:42 [place] % (Auto) 7.6 % (2-11) 07/18/24 10:42 Eos % (Auto) 1.3 % (0-4) 07/18/24 10:42 Baso % (Auto) 0.8 % (0-2) 07/18/24 10:42 Lymph # (Auto) 1.7 X10*3/uL (1.2-4.9) 07/18/24 10:42 [place] # (Auto) 0.6 X10*3/uL (0.1-1.2) 07/18/24 10:42 Eos # (Auto) 0.1 X10*3/uL (0.0-0.4) 07/18/24 10:42 Baso # (Auto) 0.1 X10*3/uL (0.0-0.2) 07/18/24 10:42 Abs Immat Gran (auto) 0.02 X10*3/uL (0.00-0.03) 07/18/24 10:42 Absolute Neuts (auto) 5.7 x10*3/uL (2.0-8.3) 07/18/24 10:42 Absolute Nucleated RBC 0.000 X10*3/uL (0.0-0.012) 07/18/24 10:42 Nucleated RBC % (auto) 0.0 /100WBC (0.0-0.2) 07/18/24 10:42 ESR 2 MM/HR (0-15) 07/18/24 10:42 Sodium 142 mmol/L (135-145) 07/18/24 10:42 Potassium 3.6 mmol/L (3.3-5.1) 07/18/24 10:42 Chloride 107 mmol/L (96-108) 07/18/24 10:42 Carbon Dioxide 26 mmol/L (22-29) 07/18/24 10:42 Anion Gap 13 (12-20) 07/18/24 10:42 BUN 14 mg/dL (9-16) 07/18/24 10:42 Creatinine 0.73 mg/dL (0.5-1.4) 07/18/24 10:42 Estim Creat Clear Calc 109.2 07/18/24 10:42 Estimated GFR > 60 07/18/24 10:42 Random Glucose 126 mg/dL (60-115) H 07/18/24 10:42 Calcium 10.0 mg/dL (8.4-10.2) 07/18/24 10:42 Total Bilirubin 0.6 mg/dL (0.0-1.0) 07/18/24 10:42 AST 9 U/L (5-37) 07/18/24 10:42 ALT 10 U/L (0-40) 07/18/24 10:42 Alkaline Phosphatase 61 U/L (39-117) 07/18/24 10:42 C-Reactive Protein < 0.04 mg/dL (< or = 0.50) 07/18/24 10:42 Total Protein 7.2 g/dL (6.5-8.0) 07/18/24 10:42 Albumin 4.7 g/dL (3.5-5.0) 07/18/24 10:42 Urine Color Yellow 07/18/24 11:21 Urine Appearance Clear 07/18/24 11:21 Urine pH 5.5 (5.0-9.0) 07/18/24 11:21 Ur Specific [place] >= 1.030 (1.005-1.025) H 07/18/24 11:21 Urine Protein Negative mg/dL (Neg-Trace) 07/18/24 11:21 Urine Glucose (UA) Negative mg/dL (Negative) 07/18/24 11:21 Urine Ketones 15 mg/dL (Negative) 07/18/24 11:21 Urine Blood Negative (Negative) 07/18/24 11:21 Urine Nitrite Negative (Negative) 07/18/24 11:21 Ur Leukocyte Esterase Negative (Negative) 07/18/24 11:21 Stool Occult Blood NEGATIVE (NEGATIVE) 07/18/24 18:[address] 07/18/24 14:42 IMPRESSION: 1. Numerous diverticula of the sigmoid colon with mild diffuse thickening of the bowel wall. Small area of subtle edema in the pericolonic fat at the mid sigmoid. Possible mild diverticulitis. No perforation or abscess. 2. Partially visualized cystic lesion with peripheral calcification lower pole right kidney measuring 2.7 cm. This can be further evaluated with CT renal exam. Electronically signed by: Tyler Hernandez MD 07/18/2024 04:18 PM EDT <Samir Call MD - Last Filed: 07/22/24 14:38> Assessment and Plan (1) Anal pain: Status: Acute <Samir Call MD - Last Filed: 07/22/24 14:38> He has had severe anal pain. Overall clinical presentation is suggestive of an anal fissure. I am unable to the exam at bedside in view of his severe pain. I explained to him it may be best to proceed with exam under anesthesia in the operating room. He may benefit from sphincterotomy depending on the findings. I explained to him the technique of this procedure I reviewed with him the risks including but not limited to bleeding, infections, sphincter injury, postop pain, as well as the benefits and alternatives He understands and wants to proceed. We will put him on the add on schedule in the OR for today for exam under anesthesia and possible sphincterotomy His pelvic CT does not suggest an abscess in the perianal area. <Samir Call MD - Last Filed: 07/22/24 14:38> Procedures Date of Service Date of Service: 07/22/24 <Samir Call MD - Last Filed: 07/22/24 14:38> 07/19/24 <Linsey Castro MD - Last Filed: 07/19/24 13:30>
--- NOTE | 2024-07-19 09:45 | MHC.CM.PN ---
Addendum entered by Татьяна Veliz RN 07/19/24 13:26: Received HCP from [facility] listing Myla Nayak as HCA. Copy placed in chart. Original Note: IMM delivered. Nicholas lives in an apartment alone. Functionally independent. Denies use of DME or services. PCP Alex Johnson DO Reports he has an HCP, but is unsure who is listed as HCA's. Copy requested from [facility], to be faxed to CM office. DP: Goal is home self care via private transport. May require services. [facility] has accepted. CM will continue to follow.
--- NOTE | 2024-07-19 10:25 | HO.PM.IMPN ---
Subjective Subjective Date of Service: 07/19/24 Interval History: c/o severe anal pain with little relief from hydromorphone NPO for EUA Review of Systems Review of Systems: Yes all other systems are reviewed and are negative Physical Exam Vital Signs: Vital Signs: Last Vital Signs Temp 99.7 F 07/19/24 07:23 Pulse 58 07/19/24 07:23 Resp 20 07/19/24 09:47 BP 144/73 H 07/19/24 07:23 Pulse Ox 98 07/19/24 07:23 O2 Del Method Room Air 07/19/24 07:23 BMI result Body Mass Index 23.2 Gen: uncomfortable HEENT: sclera anicteric, moist mucus membranes Neck: supple Lungs: clear to auscultation bilaterally Heart: regular rate and rhythm, no murmurs Abd: soft, non-tender, non-distended Ext: no edema Skin: warm/well-perfused Neuro: alert and oriented x3, no focal findings Psych: appropriate affect Objective Data Active Medications Acetaminophen (Acetaminophen 325 Mg Tablet) 650 mg PO Q6H PRN PRN Reason: Pain, Mild (Pain Scale 1-3), fever or headache Alprazolam (Alprazolam 0.5 Mg Tablet) 0.5 mg PO DAILY PRN PRN Reason: Anxiety Last Admin: 07/18/24 20:27 Dose: 0.5 mg Documented By: RUSSEL Atorvastatin Calcium (Atorvastatin Calcium 10 Mg Tablet) 10 mg PO BEDTIME [facility] Last Admin: 07/18/24 20:27 Dose: 10 mg Documented By: RUSSEL Calcium Carbonate (Calcium Carbonate 750 Mg Tab.Chew) 750 mg PO Q4H PRN PRN Reason: Heartburn Docusate Sodium (Docusate Sodium 100 Mg Capsule) 200 mg PO BEDTIME [facility] Last Admin: 07/18/24 20:27 Dose: 200 mg Documented By: RUSSEL Hydromorphone HCl (Hydromorphone Hcl 1 Mg/Ml Syringe) 1.5 mg IVPUSH Q2H PRN; Protocol PRN Reason: Pain, Severe (Pain Scale 7-10) Last Admin: 07/19/24 09:47 Dose: 1.5 mg Documented By: SCOTT Piperacillin Sod/Tazobactam (Sod 3.375 gm/ Sodium Chloride) 50 mls @ 100 mls/hr IV Q6H [facility] Last Infusion: 07/19/24 05:57 Dose: Infused Documented By: LEXIE Lactated Ringer's (Lr) 1,000 mls @ 100 mls/hr IVCONT .Q10H [facility] Last Admin: 07/19/24 04:07 Dose: 100 mls/hr Documented By: RUSSEL Lidocaine HCl (Lidocaine 4 % Cream Kit) 1 appl TOPICAL DAILY [facility]; Protocol Last Admin: 07/19/24 10:09 Dose: Not Given Documented By: SCOTT Non-Admin Reason: Med Not Available Magnesium Hydroxide (Milk Of Magnesia 30 Ml Oral.Susp) 30 ml PO DAILY PRN PRN Reason: Constipation Melatonin (Melatonin 3 Mg Tablet) 6 mg PO BEDTIME PRN PRN Reason: Insomnia Naloxone HCl (Naloxone Hcl 0.4 Mg/Ml Vial) 0.1 mg IVPUSH Q5M PRN PRN Reason: Respiratory Rate < 10 Ondansetron HCl (Ondansetron Hcl 4 Mg/2 Ml Vial) 4 mg IVPUSH Q4H PRN PRN Reason: Nausea and Vomiting Last Admin: 07/19/24 05:22 Dose: 4 mg Documented By: LEXIE Oxycodone HCl (Oxycodone Hcl Immed Release 5 Mg Tablet) 10 mg PO Q4H PRN PRN Reason: Pain, Moderate(Pain Scale 4-6) Polyethylene Glycol (Polyethylene Glycol 3350 17 Gm Powd.Pack) 17 gm PO DAILY [facility] Last Admin: 07/19/24 09:26 Dose: Not Given Documented By: SCOTT Non-Admin Reason: NPO Sertraline HCl (Sertraline Hcl 100 Mg Tablet) 100 mg PO DAILY [facility] Last Admin: 07/19/24 09:26 Dose: Not Given Documented By: SCOTT Non-Admin Reason: NPO Sodium Chloride (0.9 % Sodium Chloride Flush 3 Ml Syringe) 3 [facility] Last Admin: 07/19/24 09:48 Dose: 3 ml Documented By: SCOTT Tizanidine HCl (Tizanidine Hcl 4 Mg Tablet) 4 mg PO Q8H [facility] Last Admin: 07/19/24 02:46 Dose: 4 mg Documented By: RUSSEL Labs 07/18/24 10:42 07/18/24 10:42 Labs: Laboratory Results - last 24 hr 07/18/24 07/18/24 07/18/24 10:42 11:21 18:47 MCV 86.4 MCH 30.6 MCHC 35.4 RDW 13.5 Plt Count 276 MPV 9.7 Immature Gran % (Auto) 0.2 Neut % (Auto) 69.6 Lymph % (Auto) 20.5 [place] % (Auto) 7.6 Eos % (Auto) 1.3 Baso % (Auto) 0.8 Lymph # (Auto) 1.7 [place] # (Auto) 0.6 Eos # (Auto) 0.1 Baso # (Auto) 0.1 Abs Immat Gran (auto) 0.02 Absolute Neuts (auto) 5.7 Absolute Nucleated RBC 0.000 Nucleated RBC % (auto) 0.0 ESR 2 Anion Gap 13 Estim Creat Clear Calc 109.2 Estimated GFR > 60 Random Glucose 126 H Calcium 10.0 Total Bilirubin 0.6 AST 9 ALT 10 Alkaline Phosphatase 61 C-Reactive Protein < 0.04 Total Protein 7.2 Albumin 4.7 Urine Color Yellow Urine Appearance Clear Urine pH 5.5 Ur Specific [place] >= 1.030 H Urine Protein Negative Urine Glucose (UA) Negative Urine Ketones 15 Urine Blood Negative Urine Nitrite Negative Ur Leukocyte Esterase Negative Stool Occult Blood NEGATIVE Assessment and Plan (1) Anal pain: Status: Acute Plan d2 64yo M with hx anal fissure s/p lateral sphincterotomy in Aug 2023 with pain since then presenting with acute worsening of anal pain radiating to penis over last 3 wk. anal pain - NPO for EUA, history suggestive of recurrent anal fissure, continue IV hydromorphone + lidocaine cream, Gen Surg following mild diverticulitis - continue pip/kavon 07/18- HLD - statin mood disorder - sertraline VTE ppx - SCDs dispo - eventual home In my clinical judgment, the patient requires continued inpatient hospitalization for the following reasons: EUA/OR + pain contrl Total time managing care of this patient today: 35 minutes. Quality Stroke Does the patient have a stroke diagnosis?: No VTE Prior VTE?: No VTE Risk Level:: Medical - moderate - high VTE Device Contraindication: N/A - Device Ordered VTE Drug Contraindication: N/A - Med Ordered
[2024-07-19] MEDS: Sertraline HCL 100 MG TABLET PO (11:18)
--- NOTE | 2024-07-19 12:48 | PC.NURSE ---
Pt. is complaining of left buttock and left penis pain, crying at times, and refusing some of the care including washing, OOB etc. Pain medicine IV administered, pt. would be sleeping or quite, and crying in pain when staff enters the room. Supporting care provided.
--- NOTE | 2024-07-19 13:29 | HO.ANESPROP2 ---
HPI - Anesthesia Eval Consult details Narrative: sphinterotomy PMFSH Active Problems Active Problems: All Active Problems Diverticulitis (Acute) Rectal pain (Acute) Anal pain (Acute) Past Medical History Medical History Hypercholesteremia Anal pain Family History Family history of problems with anesthesia: No Surgical History Surgical History Hx of surgical procedure (~09/11/23) History of Problems with Anesthesia: No Social History Social History Household Members: None Housing: Apartment Alcohol intake: former Patient Tobacco Use Status: Current everyday Tobacco user Tobacco use type: Cigarette Cigarette Packs Per Day: 1.5 Cigarettes Per Day: 30.0 Substance Use Type: Marijuana service: No Meds Allergies Allergy/AdvReac Type Severity Reaction Status Date / Time No Known Allergies Allergy Verified 07/18/24 10:23 Active Medications: Current Medications Acetaminophen (Acetaminophen 325 Mg Tablet) 650 mg PO Q6H PRN PRN Reason: Pain, Mild (Pain Scale 1-3), fever or headache Alprazolam (Alprazolam 0.5 Mg Tablet) 0.5 mg PO DAILY PRN PRN Reason: Anxiety Last Admin: 07/18/24 20:27 Dose: 0.5 mg Atorvastatin Calcium (Atorvastatin Calcium 10 Mg Tablet) 10 mg PO BEDTIME [facility] Last Admin: 07/18/24 20:27 Dose: 10 mg Calcium Carbonate (Calcium Carbonate 750 Mg Tab.Chew) 750 mg PO Q4H PRN PRN Reason: Heartburn Docusate Sodium (Docusate Sodium 100 Mg Capsule) 200 mg PO BEDTIME [facility] Last Admin: 07/18/24 20:27 Dose: 200 mg Hydromorphone HCl (Hydromorphone Hcl 1 Mg/Ml Syringe) 1.5 mg IVPUSH Q2H PRN; Protocol PRN Reason: Pain, Severe (Pain Scale 7-10) Last Admin: 07/19/24 12:13 Dose: 1.5 mg Piperacillin Sod/Tazobactam (Sod 3.375 gm/ Sodium Chloride) 50 mls @ 100 mls/hr IV Q6H [facility] Last Infusion: 07/19/24 12:13 Dose: Infused Lactated Ringer's (Lr) 1,000 mls @ 100 mls/hr IVCONT .Q10H [facility] Last Infusion: 07/19/24 12:55 Dose: 0 mls/hr Lidocaine HCl (Lidocaine 4 % Cream Kit) 1 appl TOPICAL DAILY [facility]; Protocol Last Admin: 07/19/24 10:09 Dose: Not Given Magnesium Hydroxide (Milk Of Magnesia 30 Ml Oral.Susp) 30 ml PO DAILY PRN PRN Reason: Constipation Melatonin (Melatonin 3 Mg Tablet) 6 mg PO BEDTIME PRN PRN Reason: Insomnia Naloxone HCl (Naloxone Hcl 0.4 Mg/Ml Vial) 0.1 mg IVPUSH Q5M PRN PRN Reason: Respiratory Rate < 10 Ondansetron HCl (Ondansetron Hcl 4 Mg/2 Ml Vial) 4 mg IVPUSH Q4H PRN PRN Reason: Nausea and Vomiting Last Admin: 07/19/24 05:22 Dose: 4 mg Oxycodone HCl (Oxycodone Hcl Immed Release 5 Mg Tablet) 10 mg PO Q4H PRN PRN Reason: Pain, Moderate(Pain Scale 4-6) Polyethylene Glycol (Polyethylene Glycol 3350 17 Gm Powd.Pack) 17 gm PO DAILY [facility] Last Admin: 07/19/24 09:26 Dose: Not Given Sertraline HCl (Sertraline Hcl 100 Mg Tablet) 100 mg PO DAILY [facility] Last Admin: 07/19/24 11:18 Dose: 100 mg Sodium Chloride (0.9 % Sodium Chloride Flush 3 Ml Syringe) 3 ml IVFLUSH QSHIFT [facility] Last Admin: 07/19/24 09:48 Dose: 3 ml Tizanidine HCl (Tizanidine Hcl 4 Mg Tablet) 4 mg PO Q8H [facility] Last Admin: 07/19/24 11:18 Dose: 4 mg Home Medications ?Medication ?Instructions ?Recorded ?Confirmed ?Last Taken ?Type alprazolam 0.5 mg tablet 0.5 mg PO DAILY PRN Anxiety 03/14/24 07/18/24 Unknown History oxycodone 5 mg tablet 5 mg PO BID PRN Pain 03/14/24 07/18/24 Unknown History sertraline 100 mg tablet 100 mg PO DAILY 03/14/24 07/18/24 07/17/24 History simvastatin 10 mg tablet 10 mg PO BEDTIME 03/14/24 07/18/24 07/17/24 History docusate sodium 100 mg capsule 200 mg PO BEDTIME 07/18/24 07/18/24 07/17/24 History doxycycline monohydrate 100 mg 100 mg PO BID 07/18/24 07/18/24 07/17/24 History tablet polyethylene glycol 3350 17 17 g PO DAILY 07/18/24 07/18/24 07/17/24 History gram/dose oral powder tizanidine 4 mg tablet 4 mg PO Q8H 07/18/24 07/18/24 07/17/24 History Exam Height,Weight and Vital Signs: Height 6 ft Weight 77.5 kg Last Vital Signs Temp 98.5 F 07/19/24 13:02 Pulse 66 07/19/24 13:02 Resp 18 07/19/24 13:02 BP 169/81 H 07/19/24 13:02 Pulse Ox 97 07/19/24 13:02 O2 Del Method Room Air 07/19/24 13:02 Pertinent Lab Results Pertinent Lab Results: Laboratory Tests 07/18/24 07/18/24 07/18/24 10:42 11:21 18:47 WBC 8.2 RBC 5.07 Hgb 15.5 Hct 43.8 MCV 86.4 MCH 30.6 MCHC 35.4 RDW 13.5 Plt Count 276 MPV 9.7 Immature Gran % (Auto) 0.2 Neut % (Auto) 69.6 Lymph % (Auto) 20.5 [place] % (Auto) 7.6 Eos % (Auto) 1.3 Baso % (Auto) 0.8 Lymph # (Auto) 1.7 [place] # (Auto) 0.6 Eos # (Auto) 0.1 Baso # (Auto) 0.1 Abs Immat Gran (auto) 0.02 Absolute Neuts (auto) 5.7 Absolute Nucleated RBC 0.000 Nucleated RBC % (auto) 0.0 ESR 2 Sodium 142 Potassium 3.6 Chloride 107 Carbon Dioxide 26 Anion Gap 13 BUN 14 Creatinine 0.73 Estim Creat Clear Calc 109.2 Estimated GFR > 60 Random Glucose 126 H Calcium 10.0 Total Bilirubin 0.6 AST 9 ALT 10 Alkaline Phosphatase 61 C-Reactive Protein < 0.04 Total Protein 7.2 Albumin 4.7 Urine Color Yellow Urine Appearance Clear Urine pH 5.5 Ur Specific [place] >= 1.030 H Urine Protein Negative Urine Glucose (UA) Negative Urine Ketones 15 Urine Blood Negative Urine Nitrite Negative Ur Leukocyte Esterase Negative Stool Occult Blood NEGATIVE Airway Mallampati Class: II TM Dist: >3cm Neck ROM: Full Heart: rrr Lungs: cta Assessment and Plan Assessment Anesthesia Assessment: Anesthesia Plan Discussed Final Anesthetic Review Family History of Problems with Anesthesia: No History of Problems with Anesthesia: No NPO: Yes ASA Class: II Final Preanesthetic Review: No Changes in Pt Med Stat, Meds/Allgs Chart Reviewed, Consent Obtained/Reviewed and Anes Risks/Benef Reviewed Patient Risk: Low Procedure Risk: Low Anesthetic Plan Anesthetic Plan: GA Disposition: Standard PACU
--- NOTE | 2024-07-19 14:39 | PC.NURSE ---
voided 300ml in the urinal
--- NOTE | 2024-07-19 15:11 | MHC.CLN ---
NUTRITION PATIENT NPO AND SCHEDULED FOR PROCEDURE TODAY. CONSULT FOR REPORTED 50# WEIGHT LOSS X ONE YEAR. REVIEW OF WEIGHT HX SHOWS -8.5% WEIGHT LOSS X 4 MONTHS. ADMITTED WITH SEVERE ANAL PAIN AND HX ANAL FISSURE (09/14). WHEN ABLE TO RESUME DIET, PATIENT MAY BENEFIT FROM NUTRITIONAL SUPPLEMENT DUE TO RECENT WEIGHT LOSS AND POOR PO PRIOR TO ADMISSION.
--- NOTE | 2024-07-19 16:21 | P.OP_ITS ---
Operative Note Operative Note Date of Service: 07/19/24 Narrative: Preop diagnosis: Severe anal pain Postop diagnosis: Severe anal pain, history of hypertonicity and anal fissure Procedure: Exam under anesthesia, right lateral internal sphincterotomy Surgeon: Saimr Call MD The patient is a 58-year-old male who presented to the ED because of severe anal pain for about 3 weeks. 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 He could not be examined bedside because of severe tenderness. I therefore explained to him it would be best to proceed with EUA and likely lateral internal sphincterotomy. I explained to him the technique of this procedure. I reviewed the risks, benefits, and alternatives. Had given consent He was brought to the operating room. He was placed in prone jayda-knife position under general anesthesia via endotracheal tube. The buttocks were retracted with wide tape laterally. The perianal area was prepped and draped in the usual sterile fashion. A surgical time-out was done. The patient was on scheduled IV antibiotics. Examination of the anal orifice I do not reveal any significant anal lesions. I did a digital rectal exam. There is no obvious induration I was no evidence of any acute inflammatory process. I inserted the Fercho Brantley retractor and examined the anal canal circumferentially. There were no obvious lesions anal canal. There was no bleeding. There was no evidence of any fistulous disease, or any abscess He did appeared to be a some mild induration in the posterior midline. In view of the hypertonicity in the past along with a history of anal fissure, along with a severe anal pain, I feel that it was best to proceed with right lateral internal sphincterotomy to at least relaxes sphincters at this time and hopefully achieve relief. I felt for the intersphincteric groove. I made an incision along this with a blade 15. I used the hemostat to gently dissect the internal sphincter and isolate this away from the external sphincter. I used electrocautery to divide the internal sphincter fibers. I closed the incision with a running chromic 3-0 stitch I infiltrated the area with Marcaine 0.5% for postop analgesia The procedure was then completed. The patient tolerated procedure well. There were no immediate complications. Initial final counts of sponges and in struments were correct. Estimated blood loss was about 20 cc. He was extubated without difficulty and transferred to the recovery room with stable vital signs
[2024-07-19] MEDS: fentaNYL citrate/PF 100 MCG/2 ML VIAL 50 MCG IVPUSH ×2 (16:31→16:36)
[2024-07-19] MEDS: Ketorolac Tromethamine 30 MG/ML VIAL IVPUSH (16:42)
[2024-07-19] MEDS: Acetaminophen 1,000 MG/100 ML PIGGYBACK 400 MG IV (16:44)
[2024-07-19] MEDS: ALPRAZolam 0.5 MG TABLET PO (20:37)
[2024-07-19] MEDS: Atorvastatin Calcium 10 MG TABLET PO (20:37)
[2024-07-19] MEDS: Docusate Sodium 100 MG CAPSULE 200 MG PO (20:38)
[2024-07-20 00:39] VITALS: BP 126/70
[2024-07-20] MEDS: oxyCODONE HCl Immed Release 5 MG TABLET 10 MG PO ×5 (00:40→22:11)
[2024-07-20] MEDS: Piperacillin Sodium/Tazobactam 3.375 GM in 0.9 % Sodium Chloride 50 ML IV ×4 (00:43→17:11)
[2024-07-20 03:14] VITALS: BP 125/69; PULSE 53; RESP 18; TEMP 36.7; O2SAT 97
[2024-07-20] MEDS: TiZANidine HCL 4 MG TABLET PO ×3 (03:17→18:17)
[2024-07-20] MEDS: HYDROmorphone HCl 1 MG/ML SYRINGE 1.5 MG IVPUSH (06:15)
[2024-07-20 07:53] VITALS: BP 127/72; PULSE 51; RESP 18; TEMP 37.2; O2SAT 96
[2024-07-20] MEDS: polyethylene glycoL 3350 17 GM POWD.PACK PO (08:47)
[2024-07-20] MEDS: 0.9 % Sodium Chloride Flush 3 ML SYRINGE IVFLUSH ×3 (08:47→22:13)
[2024-07-20] MEDS: Sertraline HCL 100 MG TABLET PO (08:47)
--- NOTE | 2024-07-20 08:59 | PM.PNGS ---
Subjective Subjective Date of Service: 07/20/24 Interval history: Patient complains mainly of anal pain but does get relief with current pain management. Physical Exam Vital Signs: Vital Signs: Last Vital Signs Temp 99.0 F 07/20/24 07:53 Pulse 51 07/20/24 07:53 Resp 18 07/20/24 07:53 BP 127/72 07/20/24 07:53 Pulse Ox 96 07/20/24 07:53 O2 Del Method Room Air 07/20/24 07:53 O2 Flow Rate 3 07/19/24 17:14 BMI result Body Mass Index 23.2 Const: General: tired appearing Nutritional Appearance: thin Orientation/consciousness: patient oriented x3 Resp: Effort & Inspection: normal respiratory effort, no audible wheezes, no cough and no respiratory distress Back/Spine/Pelvis: Other: Perianal exam reveals no erythema, bleeding or discharge. Neuro: General: patient oriented x3 Extrem: Other: No edema Objective Data Active Medications Acetaminophen (Acetaminophen 325 Mg Tablet) 650 mg PO Q6H PRN PRN Reason: Pain, Mild (Pain Scale 1-3), fever or headache Alprazolam (Alprazolam 0.5 Mg Tablet) 0.5 mg PO DAILY PRN PRN Reason: Anxiety Last Admin: 07/19/24 20:37 Dose: 0.5 mg Documented By: JANELL Atorvastatin Calcium (Atorvastatin Calcium 10 Mg Tablet) 10 mg PO BEDTIME [facility] Last Admin: 07/19/24 20:37 Dose: 10 mg Documented By: JANELL Calcium Carbonate (Calcium Carbonate 750 Mg Tab.Chew) 750 mg PO Q4H PRN PRN Reason: Heartburn Docusate Sodium (Docusate Sodium 100 Mg Capsule) 200 mg PO BEDTIME [facility] Last Admin: 07/19/24 20:38 Dose: 200 mg Documented By: JANELL Hydromorphone HCl (Hydromorphone Hcl 1 Mg/Ml Syringe) 1.5 mg IVPUSH Q2H PRN; Protocol PRN Reason: Pain, Severe (Pain Scale 7-10) Last Admin: 07/20/24 06:15 Dose: 1.5 mg Documented By: JANELL Piperacillin Sod/Tazobactam (Sod 3.375 gm/ Sodium Chloride) 50 mls @ 100 mls/hr IV Q6H [facility] Last Infusion: 07/20/24 06:51 Dose: Infused Documented By: JANELL Lidocaine HCl (Lidocaine 4 % Cream Kit) 1 appl TOPICAL DAILY [facility]; Protocol Last Admin: 07/19/24 10:09 Dose: Not Given Documented By: SCOTT Non-Admin Reason: Med Not Available Magnesium Hydroxide (Milk Of Magnesia 30 Ml Oral.Susp) 30 ml PO DAILY PRN PRN Reason: Constipation Melatonin (Melatonin 3 Mg Tablet) 6 mg PO BEDTIME PRN PRN Reason: Insomnia Naloxone HCl (Naloxone Hcl 0.4 Mg/Ml Vial) 0.1 mg IVPUSH Q5M PRN PRN Reason: Respiratory Rate < 10 Ondansetron HCl (Ondansetron Hcl 4 Mg/2 Ml Vial) 4 mg IVPUSH Q4H PRN PRN Reason: Nausea and Vomiting Last Admin: 07/19/24 05:22 Dose: 4 mg Documented By: LEXIE Oxycodone HCl (Oxycodone Hcl Immed Release 5 Mg Tablet) 10 mg PO Q4H PRN PRN Reason: Pain, Moderate(Pain Scale 4-6) Last Admin: 07/20/24 08:46 Dose: 10 mg Documented By: CHRISTIANO Polyethylene Glycol (Polyethylene Glycol 3350 17 Gm Powd.Pack) 17 gm PO DAILY [facility] Last Admin: 07/20/24 08:47 Dose: 17 gm Documented By: CHRISTIANO Sertraline HCl (Sertraline Hcl 100 Mg Tablet) 100 mg PO DAILY [facility] Last Admin: 07/20/24 08:47 Dose: 100 mg Documented By: CHRISTIANO Sodium Chloride (0.9 % Sodium Chloride Flush 3 Ml Syringe) 3 ml [facility]USH [facility] Last Admin: 07/20/24 08:47 Dose: 3 ml Documented By: CHRISTIANO Tizanidine HCl (Tizanidine Hcl 4 Mg Tablet) 4 mg PO Q8H [facility] Last Admin: 07/20/24 03:17 Dose: 4 mg Documented By: JANELL Labs 07/18/24 10:42 07/18/24 10:42 Procedures Date of Service Date of Service: 07/20/24 Progress Note: A&P Assessment and plan (1) Anal fissure: Status: Acute Plan Pod 1 following lateral internal sphincterotomy for anal fissure. Wounds are clean. Recommend Starting Sitz baths. Patient should be out of bed and ambulating as well. Wean off IV pain medication. Time Spent With Patient Time: Total time managing care of this patient today ____ minutes. Quality Stroke Does the patient have a stroke diagnosis?: No VTE Prior VTE?: No VTE Risk Level:: Medical - moderate - high VTE Device Contraindication: N/A - Device Ordered VTE Drug Contraindication: N/A - Med Ordered
--- NOTE | 2024-07-20 09:43 | HO.PM.IMPN ---
Subjective Subjective Date of Service: 07/20/24 Interval History: POD1 sphincterotomy severe pain, still using IV hydromorphone but trying to transition to PO oxycodone no fever Review of Systems Review of Systems: Yes all other systems are reviewed and are negative Physical Exam Vital Signs: Vital Signs: Last Vital Signs Temp 99.0 F 07/20/24 07:53 Pulse 51 07/20/24 07:53 Resp 18 07/20/24 07:53 BP 127/72 07/20/24 07:53 Pulse Ox 96 07/20/24 07:53 O2 Del Method Room Air 07/20/24 07:53 O2 Flow Rate 3 07/19/24 17:14 BMI result Body Mass Index 23.2 Gen: uncomfortable HEENT: sclera anicteric, moist mucus membranes Neck: supple Lungs: clear to auscultation bilaterally Heart: regular rate and rhythm, no murmurs Abd: soft, non-tender, non-distended Ext: no edema Skin: warm/well-perfused Neuro: alert and oriented x3, no focal findings Psych: appropriate affect Objective Data Active Medications Acetaminophen (Acetaminophen 325 Mg Tablet) 650 mg PO Q6H PRN PRN Reason: Pain, Mild (Pain Scale 1-3), fever or headache Alprazolam (Alprazolam 0.5 Mg Tablet) 0.5 mg PO DAILY PRN PRN Reason: Anxiety Last Admin: 07/19/24 20:37 Dose: 0.5 mg Documented By: JANELL Atorvastatin Calcium (Atorvastatin Calcium 10 Mg Tablet) 10 mg PO BEDTIME [facility] Last Admin: 07/19/24 20:37 Dose: 10 mg Documented By: JANELL Calcium Carbonate (Calcium Carbonate 750 Mg Tab.Chew) 750 mg PO Q4H PRN PRN Reason: Heartburn Hydromorphone HCl (Hydromorphone Hcl 1 Mg/Ml Syringe) 1.5 mg IVPUSH Q2H PRN; Protocol PRN Reason: Pain, Severe (Pain Scale 7-10) Last Admin: 07/20/24 06:15 Dose: 1.5 mg Documented By: JANELL Piperacillin Sod/Tazobactam (Sod 3.375 gm/ Sodium Chloride) 50 mls @ 100 mls/hr IV Q6H [facility] Last Infusion: 07/20/24 06:51 Dose: Infused Documented By: JANELL Lidocaine HCl (Lidocaine 4 % Cream Kit) 1 appl TOPICAL DAILY [facility]; Protocol Last Admin: 07/19/24 10:09 Dose: Not Given Documented By: SCOTT Non-Admin Reason: Med Not Available Magnesium Hydroxide (Milk Of Magnesia 30 Ml Oral.Susp) 30 ml PO DAILY PRN PRN Reason: Constipation Melatonin (Melatonin 3 Mg Tablet) 6 mg PO BEDTIME PRN PRN Reason: Insomnia Naloxone HCl (Naloxone Hcl 0.4 Mg/Ml Vial) 0.1 mg IVPUSH Q5M PRN PRN Reason: Respiratory Rate < 10 Ondansetron HCl (Ondansetron Hcl 4 Mg/2 Ml Vial) 4 mg IVPUSH Q4H PRN PRN Reason: Nausea and Vomiting Last Admin: 07/19/24 05:22 Dose: 4 mg Documented By: LEXIE Oxycodone HCl (Oxycodone Hcl Immed Release 5 Mg Tablet) 10 mg PO Q4H PRN PRN Reason: Pain, Moderate(Pain Scale 4-6) Last Admin: 07/20/24 08:46 Dose: 10 mg Documented By: CHRISTIANO Polyethylene Glycol (Polyethylene Glycol 3350 17 Gm Powd.Pack) 17 gm PO DAILY [facility] Last Admin: 07/20/24 08:47 Dose: 17 gm Documented By: CHRISTIANO Psyllium Hydrophilic Mucilloid (Psyllium Seed 3.7 Gm Packet) 3.7 gm PO DAILY [facility] Senna/Docusate Sodium (Sennosides/Docusate Sodium Tablet) 2 tab PO BID [facility] Sertraline HCl (Sertraline Hcl 100 Mg Tablet) 100 mg PO DAILY [facility] Last Admin: 07/20/24 08:47 Dose: 100 mg Documented By: CHRISTIANO Sodium Chloride (0.9 % Sodium Chloride Flush 3 Ml Syringe) 3 ml IVFLUSH QSHIFT [facility] Last Admin: 07/20/24 08:47 Dose: 3 ml Documented By: CHRISTIANO Tizanidine HCl (Tizanidine Hcl 4 Mg Tablet) 4 mg PO Q8H [facility] Last Admin: 07/20/24 03:17 Dose: 4 mg Documented By: JANELL Labs 07/18/24 10:42 07/18/24 10:42 Assessment and Plan (1) Anal pain: Status: Acute Plan d3 64yo M with hx anal fissure s/p lateral sphincterotomy in Aug 2023 with pain since then presenting with acute worsening of anal pain radiating to penis over last 3 wk. anal pain hx anal fissure - POD1 right lateral internal sphincterotomy for hypertonic sphincter - senna/docusate, psyillium, Sitz baths - try to wean off IV hydromorphone, transition to PO oxycodone - lidocaine cream - Gen Surg outpt follow-up mild diverticulitis - continue pip/kavon 07/18-, transition to amoxicillin-clavulanate upon discharge HLD - statin mood disorder - sertraline VTE ppx - SCDs dispo - eventual home In my clinical judgment, the patient requires continued inpatient hospitalization for the following reasons: pain contrl Total time managing care of this patient today: 35 minutes. Quality Stroke Does the patient have a stroke diagnosis?: No VTE Prior VTE?: No VTE Risk Level:: Medical - moderate - high VTE Device Contraindication: N/A - Device Ordered VTE Drug Contraindication: N/A - Med Ordered
[2024-07-20] MEDS: Sennosides/Docusate Sodium TABLET 2 TAB PO ×2 (10:52→22:10)
[2024-07-20] MEDS: Psyllium seed 3.7 GM PACKET PO (10:53)
[2024-07-20] MEDS: Lidocaine 4 % Cream KIT 1 APPL TOPICAL (10:53)
[2024-07-20] MEDS: Acetaminophen 325 MG TABLET 650 MG PO ×2 (12:50→22:10)
--- NOTE | 2024-07-20 14:36 | PC.NURSE ---
PRN oxycodone 10mg and PRN Tylenol 650mg given to pt for 10/10 pain at pt request.
[2024-07-20 15:23] VITALS: BP 125/58; PULSE 52; RESP 20; TEMP 36.8; O2SAT 95
--- NOTE | 2024-07-20 16:17 | HO.POSTANES ---
Post Anesthesia Evaluation Post Anesthesia Evaluation Date of Service: 07/20/24 Vital Signs: Vital Signs Temp Pulse Resp BP Pulse Ox O2 Del Method 07/20/24 15:23 98.3 F 52 20 125/58 L 95 Room Air 07/20/24 07:53 99.0 F 51 18 127/72 96 Room Air Anesthesia: General LMA Mental Status: Awake Pain Control: Satisfactory (severe pain) Nausea/Vomiting: None Hydration: Adequate Anesthesia-Related Issues: No Anes. Related Issues
[2024-07-20] MEDS: Atorvastatin Calcium 10 MG TABLET PO (22:10)
[2024-07-21] MEDS: Piperacillin Sodium/Tazobactam 3.375 GM in 0.9 % Sodium Chloride 50 ML IV ×5 (00:02→23:20)
[2024-07-21 03:07] VITALS: BP 157/74; PULSE 54; RESP 18; TEMP 36.9; O2SAT 97
[2024-07-21] MEDS: TiZANidine HCL 4 MG TABLET PO ×3 (03:09→18:15)
[2024-07-21] MEDS: ALPRAZolam 0.5 MG TABLET PO ×2 (03:13→23:19)
[2024-07-21] MEDS: oxyCODONE HCl Immed Release 5 MG TABLET 10 MG PO ×3 (06:42→17:07)
[2024-07-21] MEDS: Acetaminophen 325 MG TABLET 650 MG PO ×2 (06:42→17:07)
[2024-07-21 07:39] VITALS: BP 179/85; PULSE 60; RESP 18; TEMP 36.3; O2SAT 99
[2024-07-21] MEDS: HYDROmorphone HCl 1 MG/ML SYRINGE IVPUSH ×3 (07:43→13:27)
[2024-07-21] MEDS: Sennosides/Docusate Sodium TABLET 2 TAB PO ×2 (09:07→20:00)
[2024-07-21] MEDS: Sertraline HCL 100 MG TABLET PO (09:07)
[2024-07-21] MEDS: polyethylene glycoL 3350 17 GM POWD.PACK PO (09:08)
[2024-07-21] MEDS: Psyllium seed 3.7 GM PACKET PO (09:08)
--- NOTE | 2024-07-21 09:21 | PM.PNGS ---
Subjective Subjective Date of Service: 07/21/24 Interval history: Patient now reporting pain in the penis as well as the perianal skin. Has not done Sitz baths as requested. Remains on frequent doses of IV narcotic. Physical Exam Vital Signs: Vital Signs: Last Vital Signs Temp 97.3 F 07/21/24 07:39 Pulse 60 07/21/24 07:39 Resp 18 07/21/24 07:39 BP 179/85 H 07/21/24 07:39 Pulse Ox 99 07/21/24 07:39 O2 Del Method Room Air 07/21/24 07:39 O2 Flow Rate 3 07/19/24 17:14 BMI result Body Mass Index 23.2 Const: General: in distress Nutritional Appearance: thin Orientation/consciousness: patient oriented x3 Resp: Effort & Inspection: normal respiratory effort : Other: Shaft of penis and scrotum are normal without erythema or edema. Back/Spine/Pelvis: Other: Perianal skin is clean with an intact incision. No erythema or purulence discharge is noted. Skin: Other: Warm, dry, no rash Neuro: General: patient oriented x3 Objective Data Active Medications Acetaminophen (Acetaminophen 325 Mg Tablet) 650 mg PO Q6H PRN PRN Reason: Pain, Mild (Pain Scale 1-3), fever or headache Last Admin: 07/21/24 06:42 Dose: 650 mg Documented By: JANELL Alprazolam (Alprazolam 0.5 Mg Tablet) 0.5 mg PO DAILY PRN PRN Reason: Anxiety Last Admin: 07/21/24 03:13 Dose: 0.5 mg Documented By: JANELL Atorvastatin Calcium (Atorvastatin Calcium 10 Mg Tablet) 10 mg PO BEDTIME [facility] Last Admin: 07/20/24 22:10 Dose: 10 mg Documented By: JANELL Calcium Carbonate (Calcium Carbonate 750 Mg Tab.Chew) 750 mg PO Q4H PRN PRN Reason: Heartburn Hydromorphone HCl (Hydromorphone Hcl 1 Mg/Ml Syringe) 1 mg IVPUSH Q4H PRN; Protocol PRN Reason: Pain, Severe (Pain Scale 7-10) Last Admin: 07/21/24 07:43 Dose: 1 mg Documented By: ELENA Piperacillin Sod/Tazobactam (Sod 3.375 gm/ Sodium Chloride) 50 mls @ 100 mls/hr IV Q6H [facility] Last Infusion: 07/21/24 06:41 Dose: Infused Documented By: JANELL Lidocaine HCl (Lidocaine 4 % Cream Kit) 1 appl TOPICAL DAILY [facility]; Protocol Last Admin: 07/21/24 09:13 Dose: Not Given Documented By: CHRISTIANO Non-Admin Reason: Patient Refused Magnesium Hydroxide (Milk Of Magnesia 30 Ml Oral.Susp) 30 ml PO DAILY PRN PRN Reason: Constipation Melatonin (Melatonin 3 Mg Tablet) 6 mg PO BEDTIME PRN PRN Reason: Insomnia Naloxone HCl (Naloxone Hcl 0.4 Mg/Ml Vial) 0.1 mg IVPUSH Q5M PRN PRN Reason: Respiratory Rate < 10 Ondansetron HCl (Ondansetron Hcl 4 Mg/2 Ml Vial) 4 mg IVPUSH Q4H PRN PRN Reason: Nausea and Vomiting Last Admin: 07/19/24 05:22 Dose: 4 mg Documented By: LEXIE Oxycodone HCl (Oxycodone Hcl Immed Release 5 Mg Tablet) 10 mg PO Q4H PRN PRN Reason: Pain, Moderate(Pain Scale 4-6) Last Admin: 07/21/24 06:42 Dose: 10 mg Documented By: JANELL Comments: per pt request Polyethylene Glycol (Polyethylene Glycol 3350 17 Gm Powd.Pack) 17 gm PO DAILY [facility] Last Admin: 07/21/24 09:08 Dose: 17 gm Documented By: CHRISTIANO Psyllium Hydrophilic Mucilloid (Psyllium Seed 3.7 Gm Packet) 3.7 gm PO DAILY [facility] Last Admin: 07/21/24 09:08 Dose: 3.7 gm Documented By: CHRISTIANO Senna/Docusate Sodium (Sennosides/Docusate Sodium Tablet) 2 tab PO BID [facility] Last Admin: 07/21/24 09:07 Dose: 2 tab Documented By: CHRISTIANO Sertraline HCl (Sertraline Hcl 100 Mg Tablet) 100 mg PO DAILY [facility] Last Admin: 07/21/24 09:07 Dose: 100 mg Documented By: CHRISTIANO Sodium Chloride (0.9 % Sodium Chloride Flush 3 Ml Syringe) 3 ml IVFLUSH QSHIFT [facility] Last Admin: 07/21/24 08:09 Dose: Not Given Documented By: CHRISTIANO Non-Admin Reason: Previously Administered Tizanidine HCl (Tizanidine Hcl 4 Mg Tablet) 4 mg PO Q8H [facility] Last Admin: 07/21/24 09:07 Dose: 4 mg Documented By: CHRISTIANO Labs 07/18/24 10:42 07/18/24 10:42 Procedures Date of Service Date of Service: 07/21/24 Progress Note: A&P Assessment and plan (1) Anal fissure: Status: Acute Plan Pod 2 following lateral internal sphincterotomy for anal fissure. Wounds are clean. Patient continues to require high doses of IV narcotic which does not seem to be covering his pain. He is now reporting pain in the penis although examination today reveals no suspicious findings. Suggest Urology consultation. Time Spent With Patient Time: Total time managing care of this patient today ____ minutes. Quality Stroke Does the patient have a stroke diagnosis?: No VTE Prior VTE?: No VTE Risk Level:: Medical - moderate - high VTE Device Contraindication: N/A - Device Ordered VTE Drug Contraindication: N/A - Med Ordered
--- NOTE | 2024-07-21 10:12 | P.PNIM_ITS ---
Subjective Subjective Date of Service: 07/21/24 Interval History: c/o severe anal and penile pain despite IV hydromorphone no fever Review of Systems Review of Systems: Yes all other systems are reviewed and are negative Physical Exam 2 Vital Signs: Vital Signs: Last Vital Signs Temp 97.3 F 07/21/24 07:39 Pulse 60 07/21/24 07:39 Resp 18 07/21/24 07:39 BP 179/85 H 07/21/24 07:39 Pulse Ox 99 07/21/24 07:39 O2 Del Method Room Air 07/21/24 07:39 O2 Flow Rate 3 07/19/24 17:14 BMI result Body Mass Index 23.2 Gen: uncomfortable, writhing in pain HEENT: sclera anicteric, moist mucus membranes Neck: supple Lungs: clear to auscultation bilaterally Heart: regular rate and rhythm, no murmurs Abd: soft, non-tender, non-distended, intact perianal incision : no erythema or swelling of penis or scrotum Ext: no edema Skin: warm/well-perfused Neuro: alert and oriented x3, no focal findings Psych: appropriate affect Objective Data Active Medications Acetaminophen (Acetaminophen 325 Mg Tablet) 650 mg PO Q6H PRN PRN Reason: Pain, Mild (Pain Scale 1-3), fever or headache Last Admin: 07/21/24 06:42 Dose: 650 mg Documented By: JANELL Alprazolam (Alprazolam 0.5 Mg Tablet) 0.5 mg PO DAILY PRN PRN Reason: Anxiety Last Admin: 07/21/24 03:13 Dose: 0.5 mg Documented By: JANELL Atorvastatin Calcium (Atorvastatin Calcium 10 Mg Tablet) 10 mg PO BEDTIME [facility] Last Admin: 07/20/24 22:10 Dose: 10 mg Documented By: JANELL Calcium Carbonate (Calcium Carbonate 750 Mg Tab.Chew) 750 mg PO Q4H PRN PRN Reason: Heartburn Hydromorphone HCl (Hydromorphone Hcl 1 Mg/Ml Syringe) 1 mg IVPUSH Q4H PRN; Protocol PRN Reason: Pain, Severe (Pain Scale 7-10) Last Admin: 07/21/24 07:43 Dose: 1 mg Documented By: ELENA Piperacillin Sod/Tazobactam (Sod 3.375 gm/ Sodium Chloride) 50 mls @ 100 mls/hr IV Q6H [facility] Last Infusion: 07/21/24 06:41 Dose: Infused Documented By: JANELL Lidocaine HCl (Lidocaine 4 % Cream Kit) 1 appl TOPICAL DAILY [facility]; Protocol Last Admin: 07/21/24 09:13 Dose: Not Given Documented By: CHRISTIANO Non-Admin Reason: Patient Refused Magnesium Hydroxide (Milk Of Magnesia 30 Ml Oral.Susp) 30 ml PO DAILY PRN PRN Reason: Constipation Melatonin (Melatonin 3 Mg Tablet) 6 mg PO BEDTIME PRN PRN Reason: Insomnia Naloxone HCl (Naloxone Hcl 0.4 Mg/Ml Vial) 0.1 mg IVPUSH Q5M PRN PRN Reason: Respiratory Rate < 10 Ondansetron HCl (Ondansetron Hcl 4 Mg/2 Ml Vial) 4 mg IVPUSH Q4H PRN PRN Reason: Nausea and Vomiting Last Admin: 07/19/24 05:22 Dose: 4 mg Documented By: LEXIE Oxycodone HCl (Oxycodone Hcl Immed Release 5 Mg Tablet) 10 mg PO Q4H PRN PRN Reason: Pain, Moderate(Pain Scale 4-6) Last Admin: 07/21/24 06:42 Dose: 10 mg Documented By: JANELL Comments: per pt request Polyethylene Glycol (Polyethylene Glycol 3350 17 Gm Powd.Pack) 17 gm PO DAILY [facility] Last Admin: 07/21/24 09:08 Dose: 17 gm Documented By: CHRISTIANO Psyllium Hydrophilic Mucilloid (Psyllium Seed 3.7 Gm Packet) 3.7 gm PO DAILY [facility] Last Admin: 07/21/24 09:08 Dose: 3.7 gm Documented By: CHRISTIANO Senna/Docusate Sodium (Sennosides/Docusate Sodium Tablet) 2 tab PO BID [facility] Last Admin: 07/21/24 09:07 Dose: 2 tab Documented By: CHRISTIANO Sertraline HCl (Sertraline Hcl 100 Mg Tablet) 100 mg PO DAILY [facility] Last Admin: 07/21/24 09:07 Dose: 100 mg Documented By: CHRISTIANO Sodium Chloride (0.9 % Sodium Chloride Flush 3 Ml Syringe) 3 ml IVFLUSH QSHIFT [facility] Last Admin: 07/21/24 08:09 Dose: Not Given Documented By: CHRISTIANO Non-Admin Reason: Previously Administered Tizanidine HCl (Tizanidine Hcl 4 Mg Tablet) 4 mg PO Q8H [facility] Last Admin: 07/21/24 09:07 Dose: 4 mg Documented By: CHRISTIANO Labs 07/18/24 10:42 07/18/24 10:42 Assessment and Plan (1) Anal pain: Status: Acute Plan d4 64yo M with hx anal fissure s/p lateral sphincterotomy in Aug 2023 with pain since then presenting with acute worsening of anal pain radiating to penis over last 3 wk anal pain hx anal fissure - POD2 right lateral internal sphincterotomy for hypertonic sphincter - senna/docusate, psyillium, Sitz baths - IV hydromorphone, PO oxycodone - lidocaine cream - Gen Surg following and will also consult Urology mild diverticulitis - continue pip/kavon 07/18-, transition to amoxicillin-clavulanate upon discharge HLD - statin mood disorder - sertraline VTE ppx - SCDs dispo - eventual home In my clinical judgment, the patient requires continued inpatient hospitalization for the following reasons: pain control Total time managing care of this patient today: 35 minutes. Quality Stroke Does the patient have a stroke diagnosis?: No VTE Prior VTE?: No VTE Risk Level:: Medical - moderate - high VTE Device Contraindication: N/A - Device Ordered VTE Drug Contraindication: N/A - Med Ordered
[2024-07-21 15:31] VITALS: BP 132/71; PULSE 50; RESP 15; TEMP 36.1; O2SAT 97
[2024-07-21] MEDS: 0.9 % Sodium Chloride Flush 3 ML SYRINGE IVFLUSH ×2 (17:09→23:41)
--- NOTE | 2024-07-21 17:12 | PC.NURSE ---
PRN 650mg Tylenol given for 6/10 pain at pt request
[2024-07-21] MEDS: HYDROmorphone HCl 1 MG/ML SYRINGE 1.5 MG IVPUSH ×2 (17:36→23:18)
--- NOTE | 2024-07-21 17:40 | PC.NURSE ---
pt yelling out about increased pain, stating that after the PO PRN oxycodone and PRN Tylenol were ineffective, and that the pain increased to 10/10. Dr Cho made aware and PRN pain medications changed. PRN dilaudid 1.5mg administered IV per MD order.
[2024-07-21] MEDS: Atorvastatin Calcium 10 MG TABLET PO (20:00)
[2024-07-21 23:34] VITALS: BP 132/67; PULSE 50; RESP 14; TEMP 37.1; O2SAT 93
[2024-07-22] MEDS: TiZANidine HCL 4 MG TABLET PO ×2 (01:45→10:11)
[2024-07-22] MEDS: Piperacillin Sodium/Tazobactam 3.375 GM in 0.9 % Sodium Chloride 50 ML IV ×4 (05:15→23:10)
[2024-07-22] MEDS: HYDROmorphone HCl 1 MG/ML SYRINGE 1.5 MG IVPUSH ×3 (05:24→16:20)
[2024-07-22 07:43] VITALS: BP 133/66; PULSE 61; RESP 18; TEMP 36.1; O2SAT 99
--- NOTE | 2024-07-22 08:03 | PM.PNGS ---
Subjective Subjective Date of Service: 07/22/24 Interval history: Says she continues to have severe pain in the anus and penis. He says he has burning when he urinates Has BMs He feels that narcotics do not help Physical Exam Vital Signs: Vital Signs: Last Vital Signs Temp 96.9 F 07/22/24 07:43 Pulse 61 07/22/24 07:43 Resp 18 07/22/24 07:43 BP 133/66 07/22/24 07:43 Pulse Ox 99 07/22/24 07:43 O2 Del Method Room Air 07/22/24 07:43 O2 Flow Rate 3 07/19/24 17:14 BMI result Body Mass Index 23.2 Const: Other: Complains of pain Resp: Effort & Inspection: normal respiratory effort Cardio: Rate: regular rate GI: Palpation (GI): Soft to palpation Objective Data Active Medications Acetaminophen (Acetaminophen 325 Mg Tablet) 650 mg PO Q6H PRN PRN Reason: Pain, Mild (Pain Scale 1-3), fever or headache Last Admin: 07/21/24 17:07 Dose: 650 mg Documented By: CHRISTIANO Alprazolam (Alprazolam 0.5 Mg Tablet) 0.5 mg PO DAILY PRN PRN Reason: Anxiety Last Admin: 07/21/24 23:19 Dose: 0.5 mg Documented By: ZOË Comments: provider made aware of early administration, per pts request, and approved. Atorvastatin Calcium (Atorvastatin Calcium 10 Mg Tablet) 10 mg PO BEDTIME AKIL Last Admin: 07/21/24 20:00 Dose: 10 mg Documented By: ZOË Calcium Carbonate (Calcium Carbonate 750 Mg Tab.Chew) 750 mg PO Q4H PRN PRN Reason: Heartburn Hydromorphone HCl (Hydromorphone Hcl 1 Mg/Ml Syringe) 1.5 mg IVPUSH Q4H PRN; Protocol PRN Reason: Pain, Severe (Pain Scale 7-10) Last Admin: 07/22/24 05:24 Dose: 1.5 mg Documented By: ZOË Piperacillin Sod/Tazobactam (Sod 3.375 gm/ Sodium Chloride) 50 mls @ 100 mls/hr IV Q6H [facility] Last Infusion: 07/22/24 05:45 Dose: Infused Documented By: ZOË Lidocaine HCl (Lidocaine 4 % Cream Kit) 1 appl TOPICAL DAILY [facility]; Protocol Last Admin: 07/21/24 09:13 Dose: Not Given Documented By: CHRISTIANO Non-Admin Reason: Patient Refused Magnesium Hydroxide (Milk Of Magnesia 30 Ml Oral.Susp) 30 ml PO DAILY PRN PRN Reason: Constipation Melatonin (Melatonin 3 Mg Tablet) 6 mg PO BEDTIME PRN PRN Reason: Insomnia Naloxone HCl (Naloxone Hcl 0.4 Mg/Ml Vial) 0.1 mg IVPUSH Q5M PRN PRN Reason: Respiratory Rate < 10 Ondansetron HCl (Ondansetron Hcl 4 Mg/2 Ml Vial) 4 mg IVPUSH Q4H PRN PRN Reason: Nausea and Vomiting Last Admin: 07/19/24 05:22 Dose: 4 mg Documented By: LEXIE Oxycodone HCl (Oxycodone Hcl Immed Release 15 Mg Tablet) 15 mg PO Q6H PRN PRN Reason: Pain, Moderate(Pain Scale 4-6) Polyethylene Glycol (Polyethylene Glycol 3350 17 Gm Powd.Pack) 17 gm PO DAILY [facility] Last Admin: 07/21/24 09:08 Dose: 17 gm Documented By: CHRISTIANO Psyllium Hydrophilic Mucilloid (Psyllium Seed 3.7 Gm Packet) 3.7 gm PO DAILY [facility] Last Admin: 07/21/24 09:08 Dose: 3.7 gm Documented By: CHRISTIANO Senna/Docusate Sodium (Sennosides/Docusate Sodium Tablet) 2 tab PO BID [facility] Last Admin: 07/21/24 20:00 Dose: 2 tab Documented By: ZOË Sertraline HCl (Sertraline Hcl 100 Mg Tablet) 100 mg PO DAILY [facility] Last Admin: 07/21/24 09:07 Dose: 100 mg Documented By: CHRISTIANO Sodium Chloride (0.9 % Sodium Chloride Flush 3 Ml Syringe) 3 ml IVFLUSH QSHIFT [facility] Last Admin: 07/21/24 23:41 Dose: 3 ml Documented By: ZOË Tizanidine HCl (Tizanidine Hcl 4 Mg Tablet) 4 mg PO Q8H [facility] Last Admin: 07/22/24 01:45 Dose: 4 mg Documented By: ZOË Labs 07/18/24 10:42 07/18/24 10:42 Procedures Date of Service Date of Service: 07/22/24 Progress Note: A&P Assessment and plan (1) Anal pain: Status: Acute Assessment and Plan: Status post sphincterotomy He continues to have severe pain He says he has pain in the penis as well Describes severe burning Sphincterotomy site not infected Pain poorly controlled with narcotics Try gabapentin ? Etiology remains uncertain Time Spent With Patient Time: Total time managing care of this patient today ____ minutes. Quality Stroke Does the patient have a stroke diagnosis?: No VTE Prior VTE?: No VTE Risk Level:: Medical - moderate - high VTE Device Contraindication: N/A - Device Ordered VTE Drug Contraindication: N/A - Med Ordered
--- NOTE | 2024-07-22 08:20 | P.CNUR_ITS ---
History of Present Illness Consult details Consult date: 07/22/24 Narrative: CC: Pain and penile tip 64-year-old Penile left side tip pain following rectal Procedure History suggestive of prostatitis Physical exam consistent with chronic prostatitis. Marked bogginess and swelling of left prostate. Patient has classic response to prostatic massage with marked pain towards tip of the penis. Has been on Pepcid vasa antibiotics. Add Augmentin Try diazepam 10 mg crushed per rectum to decrease pelvic floor tension Review of Systems 2 Constitutional: Constitutional: Reports as per HPI and Reports no additional constitutional complaints Cardiovascular: Cardiovascular: Reports as per HPI and Reports no additional cardiovascular complaints Respiratory: Respiratory: Reports as per HPI and Reports no additional respiratory complaints Gastrointestinal: Gastrointestinal: Reports as per HPI and Reports no additional gastrointestinal complaints Genitourinary: Genitourinary: Reports as per HPI Musculoskeletal: Musculoskeletal: Reports no additional musculoskeletal complaints and Reports as per HPI Neurologic: Reports system reviewed and no additional complaints, except as documented and Reports as per HPI PMFSH Past Medical History Medical History Hypercholesteremia Anal pain Surgical History Surgical History Hx of surgical procedure (~09/11/23) Social History Social History Household Members: None Housing: Apartment Alcohol intake: former Patient Tobacco Use Status: Current everyday Tobacco user Tobacco use type: Cigarette Cigarette Packs Per Day: 1.5 Cigarettes Per Day: 30.0 Substance Use Type: Marijuana service: No Meds Allergies Allergy/AdvReac Type Severity Reaction Status Date / Time No Known Allergies Allergy Verified 07/18/24 10:23 Active Medications: Current Medications Acetaminophen (Acetaminophen 325 Mg Tablet) 650 mg PO Q6H PRN PRN Reason: Pain, Mild (Pain Scale 1-3), fever or headache Last Admin: 07/21/24 17:07 Dose: 650 mg Alprazolam (Alprazolam 0.5 Mg Tablet) 0.5 mg PO DAILY PRN PRN Reason: Anxiety Last Admin: 07/21/24 23:19 Dose: 0.5 mg Atorvastatin Calcium (Atorvastatin Calcium 10 Mg Tablet) 10 mg PO BEDTIME AKIL Last Admin: 07/21/24 20:00 Dose: 10 mg Calcium Carbonate (Calcium Carbonate 750 Mg Tab.Chew) 750 mg PO Q4H PRN PRN Reason: Heartburn Hydromorphone HCl (Hydromorphone Hcl 1 Mg/Ml Syringe) 1.5 mg IVPUSH Q4H PRN; Protocol PRN Reason: Pain, Severe (Pain Scale 7-10) Last Admin: 07/22/24 05:24 Dose: 1.5 mg Piperacillin Sod/Tazobactam (Sod 3.375 gm/ Sodium Chloride) 50 mls @ 100 mls/hr IV Q6H [facility] Last Infusion: 07/22/24 05:45 Dose: Infused Lidocaine HCl (Lidocaine 4 % Cream Kit) 1 appl TOPICAL DAILY [facility]; Protocol Last Admin: 07/21/24 09:13 Dose: Not Given Magnesium Hydroxide (Milk Of Magnesia 30 Ml Oral.Susp) 30 ml PO DAILY PRN PRN Reason: Constipation Melatonin (Melatonin 3 Mg Tablet) 6 mg PO BEDTIME PRN PRN Reason: Insomnia Naloxone HCl (Naloxone Hcl 0.4 Mg/Ml Vial) 0.1 mg IVPUSH Q5M PRN PRN Reason: Respiratory Rate < 10 Ondansetron HCl (Ondansetron Hcl 4 Mg/2 Ml Vial) 4 mg IVPUSH Q4H PRN PRN Reason: Nausea and Vomiting Last Admin: 07/19/24 05:22 Dose: 4 mg Oxycodone HCl (Oxycodone Hcl Immed Release 15 Mg Tablet) 15 mg PO Q6H PRN PRN Reason: Pain, Moderate(Pain Scale 4-6) Polyethylene Glycol (Polyethylene Glycol 3350 17 Gm Powd.Pack) 17 gm PO DAILY [facility] Last Admin: 07/21/24 09:08 Dose: 17 gm Psyllium Hydrophilic Mucilloid (Psyllium Seed 3.7 Gm Packet) 3.7 gm PO DAILY [facility] Last Admin: 07/21/24 09:08 Dose: 3.7 gm Senna/Docusate Sodium (Sennosides/Docusate Sodium Tablet) 2 tab PO BID [facility] Last Admin: 07/21/24 20:00 Dose: 2 tab Sertraline HCl (Sertraline Hcl 100 Mg Tablet) 100 mg PO DAILY [facility] Last Admin: 07/21/24 09:07 Dose: 100 mg Sodium Chloride (0.9 % Sodium Chloride Flush 3 Ml Syringe) 3 ml IVFLUSH QSHIFT [facility] Last Admin: 07/21/24 23:41 Dose: 3 ml Tizanidine HCl (Tizanidine Hcl 4 Mg Tablet) 4 mg PO Q8H [facility] Last Admin: 07/22/24 01:45 Dose: 4 mg Home Medications ?Medication ?Instructions ?Recorded ?Confirmed ?Last Taken ?Type alprazolam 0.5 mg tablet 0.5 mg PO DAILY PRN Anxiety 03/14/24 07/18/24 Unknown History oxycodone 5 mg tablet 5 mg PO BID PRN Pain 03/14/24 07/18/24 Unknown History sertraline 100 mg tablet 100 mg PO DAILY 03/14/24 07/18/24 07/17/24 History simvastatin 10 mg tablet 10 mg PO BEDTIME 03/14/24 07/18/24 07/17/24 History docusate sodium 100 mg capsule 200 mg PO BEDTIME 07/18/24 07/18/24 07/17/24 History doxycycline monohydrate 100 mg 100 mg PO BID 07/18/24 07/18/24 07/17/24 History tablet polyethylene glycol 3350 17 17 g PO DAILY 07/18/24 07/18/24 07/17/24 History gram/dose oral powder tizanidine 4 mg tablet 4 mg PO Q8H 07/18/24 07/18/24 07/17/24 History Physical Exam 2 Vital Signs: Vital Signs: Last Vital Signs Temp 96.9 F 07/22/24 07:43 Pulse 61 07/22/24 07:43 Resp 18 07/22/24 07:43 BP 133/66 07/22/24 07:43 Pulse Ox 99 07/22/24 07:43 O2 Del Method Room Air 07/22/24 07:43 O2 Flow Rate 3 07/19/24 17:14 BMI result Body Mass Index 23.2 Const: General: cooperative, healthy appearing, comfortable and no acute distress Orientation/consciousness: patient oriented x3 HEENT: Face and sinus: Yes normal facial exam Mouth: moist mucous membranes Neck: Neck: Yes normal visual inspection, Yes full ROM and Yes trachea midline Chest: Chest palpation & inspection: normal inspection of the chest Resp: Effort & Inspection: normal respiratory effort, able to speak in complete sentences and no respiratory distress GI: Inspection: Yes normal to inspection Back/Spine/Pelvis: Cervical Spine: normal cervical lordosis Thoracic/Lumbar Spine: thoracic and lumbar spine normal to inspection Skin: General skin exam: no rashes or lesions noted Neuro: General: patient oriented x3, tone normal and moves all extremities Extrem: General: Yes normal to inspection and Yes capillary refill normal Results Labs 07/18/24 10:42 07/18/24 10:42 Labs: Urine 07/18/24 Range/Units 11:21 Urine Color Yellow Urine Appearance Clear Urine pH 5.5 (5.0-9.0) Ur Specific [place] >= 1.030 H (1.005-1.025) Urine Protein Negative (Neg-Trace) mg/dL Urine Glucose (UA) Negative (Negative) mg/dL All other labs normal. Assessment and Plan (1) Chronic prostatitis/chronic pelvic pain syndrome: Status: Acute Plan Diazepam rectally Expand antibiotic coverage Procedures Date of Service Date of Service: 07/22/24
[2024-07-22] MEDS: Sertraline HCL 100 MG TABLET PO (08:36)
[2024-07-22] MEDS: Sennosides/Docusate Sodium TABLET 2 TAB PO ×2 (08:36→19:32)
[2024-07-22] MEDS: oxyCODONE HCl Immed Release 15 MG TABLET PO ×3 (08:36→23:11)
[2024-07-22] MEDS: polyethylene glycoL 3350 17 GM POWD.PACK PO (08:36)
[2024-07-22] MEDS: Psyllium seed 3.7 GM PACKET PO (08:36)
[2024-07-22] MEDS: Amoxicillin/Potassium Clav 875 MG TABLET PO ×2 (08:36→19:33)
[2024-07-22] MEDS: 0.9 % Sodium Chloride Flush 3 ML SYRINGE IVFLUSH ×3 (08:38→19:33)
--- NOTE | 2024-07-22 10:47 | PC.NURSE ---
Addendum entered by Millicent Lares RN 07/22/24 16:55: At 1500 hourly round check pt observed sleeping by this RN, rise and fall of chest noted, no signs and symptoms of distress. Pt endorsing 10/10 pain at approximately 1600, PRN IVP Dilaudid given with no effect per pt response. MD Alegria aware, PRN IVP Dilaudid changed to Q3 hours. Addendum entered by Millicent Lares RN 07/22/24 12:22: Per MD Wallace give Valium 10mg crushed per rectum mixed with water soluble lube, medication administered at 11:17, pt endorsing pain with administration, PRN Dilaudid given IVP at 11:35, MD Alegria aware. At time of reassessment pt in bed michel position, drowsy but abusable to voice, states pain is still unbearable . Per Airam, continue with current plan of care. Original Note: Pt endorsing 10/10 pt not due for Dilaudid IVP last given at 05:24. PRN oxy given at 08:36 with good effect, at time of pain reassessment pt asleep.
[2024-07-22] MEDS: diazePAM 5 MG TABLET 10 MG PO ×2 (11:17→23:10)
--- NOTE | 2024-07-22 13:09 | MHC.CLN ---
F/U DIET ADVANCED TO REGULAR 07/19. INTAKE AT MEALS VARIABLE, 0-100%. CONTINUES TX FOR ANAL/PENILE PAIN. ADDING ENSURE BID TO PROMOTE NUTRITIONAL INTAKE. SUPPLEMENT PROVIDES 700 KCALS, 40 G PROTEIN. PATIENT WITH -8.5% WEIGHT LOSS X [address] TO MONITOR PO INTAKE.
[2024-07-22] MEDS: ALPRAZolam 0.5 MG TABLET PO (14:16)
[2024-07-22] MEDS: Acetaminophen 325 MG TABLET 650 MG PO (14:16)
[2024-07-22 15:56] VITALS: BP 141/76; PULSE 52; RESP 18; TEMP 37; O2SAT 97
--- NOTE | 2024-07-22 16:06 | HO.PM.IMPN ---
Subjective Subjective Date of Service: 07/22/24 Interval History: Continues to complain of 10/10 pain despite therapies. Review of Systems Denies chest pain Denies shortness of breath Denies nausea vomiting diarrhea Denies fever chills Physical Exam Vital Signs: Vital Signs: Last Vital Signs Temp 98.6 F 07/22/24 15:56 Pulse 52 07/22/24 15:56 Resp 18 07/22/24 15:56 BP 141/76 H 07/22/24 15:56 Pulse Ox 97 07/22/24 15:56 O2 Del Method Room Air 07/22/24 15:56 O2 Flow Rate 3 07/19/24 17:14 BMI result Body Mass Index 23.2 Const: Other: Awake alert no acute distress Resp: Other: Clear to auscultation bilaterally rales rhonchi or wheezes Cardio: Other: No S4; positive S1-S2; no S3 murmurs rubs or gallops GI: Other: Soft nontender nondistended normoactive bowel sounds Extrem: Other: No edema bilaterally Objective Data Active Medications Acetaminophen (Acetaminophen 325 Mg Tablet) 650 mg PO Q6H PRN PRN Reason: Pain, Mild (Pain Scale 1-3), fever or headache Last Admin: 07/22/24 14:16 Dose: 650 mg Documented By: LOURDES Alprazolam (Alprazolam 0.5 Mg Tablet) 0.5 mg PO DAILY PRN PRN Reason: Anxiety Last Admin: 07/22/24 14:16 Dose: 0.5 mg Documented By: LOURDES Amoxicillin/Clavulanate Potassium (Amoxicillin/Potassium Clav 875 Mg Tablet) 875 mg PO Q12H [facility] Last Admin: 07/22/24 08:36 Dose: 875 mg Documented By: JAIME Atorvastatin Calcium (Atorvastatin Calcium 10 Mg Tablet) 10 mg PO BEDTIME [facility] Last Admin: 07/21/24 20:00 Dose: 10 mg Documented By: ZOË Calcium Carbonate (Calcium Carbonate 750 Mg Tab.Chew) 750 mg PO Q4H PRN PRN Reason: Heartburn Diazepam (Diazepam 5 Mg Tablet) 10 mg PO Q12H PRN PRN Reason: pelvic pain Last Admin: 07/22/24 11:17 Dose: 10 mg Documented By: JAIME Comments: per MD Wallace give rectal Hydromorphone HCl (Hydromorphone Hcl 1 Mg/Ml Syringe) 1.5 mg IVPUSH Q4H PRN; Protocol PRN Reason: Pain, Severe (Pain Scale 7-10) Last Admin: 07/22/24 11:35 Dose: 1.5 mg Documented By: JAIME Piperacillin Sod/Tazobactam (Sod 3.375 gm/ Sodium Chloride) 50 mls @ 100 mls/hr IV Q6H [facility] Last Infusion: 07/22/24 12:21 Dose: Infused Documented By: JAIME Lidocaine HCl (Lidocaine 4 % Cream Kit) 1 appl TOPICAL DAILY [facility]; Protocol Last Admin: 07/22/24 08:57 Dose: Not Given Documented By: JAIME Non-Admin Reason: Patient Refused Magnesium Hydroxide (Milk Of Magnesia 30 Ml Oral.Susp) 30 ml PO DAILY PRN PRN Reason: Constipation Melatonin (Melatonin 3 Mg Tablet) 6 mg PO BEDTIME PRN PRN Reason: Insomnia Naloxone HCl (Naloxone Hcl 0.4 Mg/Ml Vial) 0.1 mg IVPUSH Q5M PRN PRN Reason: Respiratory Rate < 10 Ondansetron HCl (Ondansetron Hcl 4 Mg/2 Ml Vial) 4 mg IVPUSH Q4H PRN PRN Reason: Nausea and Vomiting Last Admin: 07/19/24 05:22 Dose: 4 mg Documented By: LEXIE Oxycodone HCl (Oxycodone Hcl Immed Release 15 Mg Tablet) 15 mg PO Q6H PRN PRN Reason: Pain, Moderate(Pain Scale 4-6) Last Admin: 07/22/24 14:16 Dose: 15 mg Documented By: LOURDES Polyethylene Glycol (Polyethylene Glycol 3350 17 Gm Powd.Pack) 17 gm PO DAILY [facility] Last Admin: 07/22/24 08:36 Dose: 17 gm Documented By: JAIME Psyllium Hydrophilic Mucilloid (Psyllium Seed 3.7 Gm Packet) 3.7 gm PO DAILY [facility] Last Admin: 07/22/24 08:36 Dose: 3.7 gm Documented By: JAIME Senna/Docusate Sodium (Sennosides/Docusate Sodium Tablet) 2 tab PO BID [facility] Last Admin: 07/22/24 08:36 Dose: 2 tab Documented By: JAIME Sertraline HCl (Sertraline Hcl 100 Mg Tablet) 100 mg PO DAILY [facility] Last Admin: 07/22/24 08:36 Dose: 100 mg Documented By: JAIME Sodium Chloride (0.9 % Sodium Chloride Flush 3 Ml Syringe) 3 ml IVFLUSH QSHIFT [facility] Last Admin: 07/22/24 15:54 Dose: 3 ml Documented By: JAIME Tizanidine HCl (Tizanidine Hcl 4 Mg Tablet) 4 mg PO Q8H [facility] Last Admin: 07/22/24 10:11 Dose: 4 mg Documented By: JAIME Labs 07/18/24 10:42 07/18/24 10:42 Assessment and Plan (1) Chronic prostatitis/chronic pelvic pain syndrome: Status: Acute (2) Anal fissure: Status: Acute (3) Diverticulitis: Status: Acute Plan d4 64yo M with 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 Chronic prostatitis/hx anal fissure - POD2 right lateral internal sphincterotomy for hypertonic sphincter - seen by surgery this a.m.; no acute issues secondary to sphincterotomy - IV hydromorphone, PO oxycodone -belladonna suppositories as per Urology; taper Dilaudid as tolerated -Augmentin added as per Urology 2.Mild diverticulitis -clinically improving - continue pip/kavon 07/18-, transition to amoxicillin-clavulanate upon discharge Full code Pneumatics dispo - eventual home In my clinical judgment, the patient requires continued inpatient hospitalization for the following reasons: pain control Quality Stroke Does the patient have a stroke diagnosis?: No VTE Prior VTE?: No VTE Risk Level:: Medical - moderate - high VTE Device Contraindication: N/A - Device Ordered VTE Drug Contraindication: N/A - Med Ordered
--- NOTE | 2024-07-22 16:20 | MHC.CM.PN ---
Per MD rounds no dc today r/t pain management. Opium+Belladonna has been ordered and will be delivered tomorrow to [facility] pharmacy. Pain management should improve. DP home self care.vs [facility]. Patient will arrange for transport home.
[2024-07-22] MEDS: Atorvastatin Calcium 10 MG TABLET PO (19:33)
[2024-07-22] MEDS: HYDROmorphone HCl 2 MG/ML VIAL 1.5 MG IVPUSH (19:36)
--- NOTE | 2024-07-22 20:30 | PC.NURSE ---
Addendum entered by Candice Flores RN 07/23/24 02:25: At the time of reassessment for Dilaudid admin around 1999, pt found in WEINER position, sleeping with even respirations, eith no apparent distress. Original Note: On assessment pt found laying in WEINER position comfortably with unlabored respirations, and is arousable to voice, pt awakens to report 10/10 unbearable pain, dilaudid administered 193.
[2024-07-22 23:19] VITALS: BP 160/84; PULSE 63; RESP 16; TEMP 36.7; O2SAT 97
[2024-07-23 06:45] LABS: MANUAL DIFF FLAG NO
--- NOTE | 2024-07-23 06:47 | HO.STUDPN_ITS ---
Subjective Subjective Date of Service: 07/23/24 <Hillary Coughlinmanohar - Last Filed: 07/23/24 07:09> 07/26/24 <Samir Call MD - Last Filed: 07/26/24 13:18> 07/23/24 <Ivonne Oswald PA-C - Last Filed: 07/23/24 14:17> Interval History: Pt reports that he is in excruciating 10/10 pain around his left sided rectum that is radiating up his back as well as prostate pain. Pt reports that he is still having burning when urinating. He has not been able to sleep well in the last 3-4 days. Pt reports that he will sleep for up to an 1/2-1hr at at time and wake up due to pain. Pt is asking that he would like to leave, he mentioned that he has been in more pain since the procedure. Pt was on the phone with his girlfriend of 9 years Myla, who asked to speak to me. She mentioned that she had told the nurse to call her to explain what is going on and that she would like a steam plant operator to call her back. Call back number is [phone]. <Hillarysa Pimentel - Last Filed: 07/23/24 07:09> Review of Systems Not able to fully assess due to patient's request to leave. <Hillary angleo Last Filed: 07/23/24 07:09> Physical Exam 2 Vital Signs: Vital Signs: Last Vital Signs Temp 98.1 F 07/22/24 23:19 Pulse 63 07/22/24 23:19 Resp 16 07/22/24 23:19 BP 160/84 H 07/22/24 23:19 Pulse Ox 97 07/22/24 23:19 O2 Del Method Room Air 07/22/24 23:19 O2 Flow Rate 3 07/19/24 17:14 BMI result Body Mass Index 23.2 <Hillary angelo - Last Filed: 07/23/24 07:09> Resp: Other: Normal respiratory effort, no wheezing rhonchi or rales. <[facility] Last Filed: 07/23/24 07:09> Cardio: Other: RRR, nl S1/S2 <[facility] Last Filed: 07/23/24 07:09> GI: Other: slightly distended, no tenderness to palpation <Hillary Coughlind - Last Filed: 07/23/24 07:09> Objective Data Active Medications Acetaminophen (Acetaminophen 325 Mg Tablet) 650 mg PO Q6H PRN PRN Reason: Pain, Mild (Pain Scale 1-3), fever or headache Last Admin: 07/22/24 14:16 Dose: 650 mg Documented By: LOURDES Alprazolam (Alprazolam 0.5 Mg Tablet) 0.5 mg PO DAILY PRN PRN Reason: Anxiety Last Admin: 07/22/24 14:16 Dose: 0.5 mg Documented By: LOURDES Amoxicillin/Clavulanate Potassium (Amoxicillin/Potassium Clav 875 Mg Tablet) 875 mg PO Q12H [facility] Last Admin: 07/22/24 19:33 Dose: 875 mg Documented By: ZOË Atorvastatin Calcium (Atorvastatin Calcium 10 Mg Tablet) 10 mg PO BEDTIME [facility] Last Admin: 07/22/24 19:33 Dose: 10 mg Documented By: ZOË Calcium Carbonate (Calcium Carbonate 750 Mg Tab.Chew) 750 mg PO Q4H PRN PRN Reason: Heartburn Diazepam (Diazepam 5 Mg Tablet) 10 mg PO Q12H PRN PRN Reason: pelvic pain Last Admin: 07/22/24 23:10 Dose: 10 mg Documented By: ZOË Hydromorphone HCl (Hydromorphone Hcl 2 Mg/Ml Vial) 1.5 mg IVPUSH Q3H PRN; Protocol PRN Reason: Pain, Severe (Pain Scale 7-10) Last Admin: 07/22/24 19:36 Dose: 1.5 mg Documented By: ZOË Piperacillin Sod/Tazobactam (Sod 3.375 gm/ Sodium Chloride) 50 mls @ 100 mls/hr IV Q6H [facility] Last Admin: 07/23/24 05:02 Dose: Not Given Documented By: ZOË Non-Admin Reason: Patient Refused Lidocaine HCl (Lidocaine 4 % Cream Kit) 1 appl TOPICAL DAILY [facility]; Protocol Last Admin: 07/22/24 08:57 Dose: Not Given Documented By: JAIME Non-Admin Reason: Patient Refused Magnesium Hydroxide (Milk Of Magnesia 30 Ml Oral.Susp) 30 ml PO DAILY PRN PRN Reason: Constipation Melatonin (Melatonin 3 Mg Tablet) 6 mg PO BEDTIME PRN PRN Reason: Insomnia Naloxone HCl (Naloxone Hcl 0.4 Mg/Ml Vial) 0.1 mg IVPUSH Q5M PRN PRN Reason: Respiratory Rate < 10 Ondansetron HCl (Ondansetron Hcl 4 Mg/2 Ml Vial) 4 mg IVPUSH Q4H PRN PRN Reason: Nausea and Vomiting Last Admin: 07/19/24 05:22 Dose: 4 mg Documented By: LEXIE Oxycodone HCl (Oxycodone Hcl Immed Release 15 Mg Tablet) 15 mg PO Q6H PRN PRN Reason: Pain, Moderate(Pain Scale 4-6) Last Admin: 07/22/24 23:11 Dose: 15 mg Documented By: ZOË Polyethylene Glycol (Polyethylene Glycol 3350 17 Gm Powd.Pack) 17 gm PO DAILY [facility] Last Admin: 07/22/24 08:36 Dose: 17 gm Documented By: JAIME Psyllium Hydrophilic Mucilloid (Psyllium Seed 3.7 Gm Packet) 3.7 gm PO DAILY [facility] Last Admin: 07/22/24 08:36 Dose: 3.7 gm Documented By: JAIME Senna/Docusate Sodium (Sennosides/Docusate Sodium Tablet) 2 tab PO BID [facility] Last Admin: 07/22/24 19:32 Dose: 2 tab Documented By: ZOË Sertraline HCl (Sertraline Hcl 100 Mg Tablet) 100 mg PO DAILY [facility] Last Admin: 07/22/24 08:36 Dose: 100 mg Documented By: JAIME Sodium Chloride (0.9 % Sodium Chloride Flush 3 Ml Syringe) 3 ml IVFLUSH QSHIFT [facility] Last Admin: 07/22/24 19:33 Dose: 3 ml Documented By: ZOË Tizanidine HCl (Tizanidine Hcl 4 Mg Tablet) 4 mg PO Q8H [facility] Last Admin: 07/23/24 03:45 Dose: Not Given Documented By: ZOË Non-Admin Reason: Patient Asleep <Hillary Ahmad - Last Filed: 07/23/24 07:09> Labs CBC & Chem 7: 07/23/24 05:03 07/23/24 05:03 <Hillary Ahmad - Last Filed: 07/23/24 07:09> Assessment and Plan (1) Rectal pain: Status: Acute <Hillary Coughlind - Last Filed: 07/23/24 07:09> Assessment and Plan: 64 year old cisgender male. 5 day status post right lateral internal sphincterotomy. Pt is currently taking Naloxone hcl 0.1 mg IV q5min PRN, and melatonin 5mg po bedtime. Pt reports that current pain medication is not helping and pt would like to leave. Increase pain medication, add gabapentin to help with symptom relief. Consider re-evaluating pt's current medication regime for anxiety. <Hillary Seferinomad - Last Filed: 07/23/24 07:09> Assessment and Plan: Patient continues to describe a severe pain in the anus and the penis Crying when seen However, checked multiple times today and he appeared to be comfortable in bed while sleeping Possible prostatitis - recommendations by Dr. Wallace noted Seen and examined independently Pain management Discussed with hospitalist service Uncertain as to the exact etiology of his severe pain <Samir Call MD - Last Filed: 07/26/24 13:18> Quality Stroke Does the patient have a stroke diagnosis?: No <Hillary Coughlind - Last Filed: 07/23/24 07:09> VTE Prior VTE?: No <Hillary Seferinomad - Last Filed: 07/23/24 07:09> VTE Risk Level:: Medical - moderate - high <Hillary Ahmad - Last Filed: 07/23/24 07:09> VTE Device Contraindication: N/A - Device Ordered <Hillary Gentilemad - Last Filed: 07/23/24 07:09> VTE Drug Contraindication: N/A - Med Ordered <Hillary Seferinomad - Last Filed: 07/23/24 07:09>
[2024-07-23 06:51] LABS: Basophils Absolute Auto 0.1 X10*3/uL (0.0-0.2); Basophils Percent Auto 0.7 % (0-2); Eosinophils Absolute Auto 0.4 X10*3/uL (0.0-0.4); Eosinophils Percent Auto 4.6 % (0-4); Hematocrit 44.4 % (42.0-52.0); Hemoglobin 15.1 g/dl (14.0-18.0); Imm Gran Abs Auto 0.02 X10*3/uL (0.00-0.03); Imm Gran Pct Auto 0.3 % (0.0-0.4); Lymphocytes Absolute Auto 1.7 X10*3/uL (1.2-4.9); Lymphocytes Percent Auto 22.4 % (20-40); Mean Corpuscular Hemoglobin 29.7 pg (27.0-33.0); Mean Corpuscular Volume 87.4 fL (80.0-98.0); Mean Platelet Volume 10.3 fL (9.4-12.4); Monocytes Absolute Auto 0.8 X10*3/uL (0.1-1.2); Monocytes Percent Auto 10.4 % (2-11); Neutrophils Absolute Auto 4.8 x10*3/uL (2.0-8.3); Neutrophils Percent Auto 61.6 % (45-73); Platelet Count 211 X10*3/uL (160-400); Red Blood Count 5.08 X10*6/uL (4.60-5.80); Red Cell Distribution Width 13.1 % (11.0-16.0); White Blood Count 7.7 X10*3/uL (4.8-10.8)
[2024-07-23 07:03] LABS: Alanine Aminotransferase 20 U/L (0-40); Albumin Level 4.2 g/dL (3.5-5.0); Alkaline Phosphatase 63 U/L (39-117); Anion Gap 14 (12-20); Aspartate Amino Transferase 14 U/L (5-37); Bilirubin Total 0.7 mg/dL (0.0-1.0); Blood Urea Nitrogen 11 mg/dL (9-16); Calcium 9.6 mg/dL (8.4-10.2); Carbon Dioxide 29 mmol/L (22-29); Chloride 106 mmol/L (96-108); Creatinine Clr Calc Pharmacy 110.6; Estimated Glomerular Filt Rate > 60; Glucose Fasting 101 mg/dL (60-99); Potassium 3.7 mmol/L (3.3-5.1); Sodium 145 mmol/L (135-145); Total Protein 6.6 g/dL (6.5-8.0)
[2024-07-23 07:37] VITALS: BP 133/67; PULSE 53; RESP 22; TEMP 36.9; O2SAT 95
[2024-07-23] MEDS: Amoxicillin/Potassium Clav 875 MG TABLET PO ×2 (08:09→20:01)
[2024-07-23] MEDS: Sennosides/Docusate Sodium TABLET 2 TAB PO ×2 (08:09→20:01)
[2024-07-23] MEDS: polyethylene glycoL 3350 17 GM POWD.PACK PO (08:09)
[2024-07-23] MEDS: Psyllium seed 3.7 GM PACKET PO (08:09)
[2024-07-23] MEDS: Sertraline HCL 100 MG TABLET PO (08:09)
[2024-07-23] MEDS: 0.9 % Sodium Chloride Flush 3 ML SYRINGE IVFLUSH ×2 (08:10→17:38)
[2024-07-23] MEDS: Ketorolac Tromethamine 30 MG/ML VIAL IVPUSH ×3 (08:10→20:01)
[2024-07-23] MEDS: Piperacillin Sodium/Tazobactam 3.375 GM in 0.9 % Sodium Chloride 50 ML IV ×3 (08:13→17:38)
[2024-07-23] MEDS: HYDROmorphone HCl 2 MG/ML VIAL IVPUSH (09:14)
--- NOTE | 2024-07-23 09:17 | PC.NURSE ---
Addendum entered by Millicent Lares RN 07/23/24 11:59: [facility] assessed pt at bedside, per recommendations DC 1:1 sitter, Dr. Alegria made aware. Original Note: Dr. Alegria made aware via tiger text Pt endorsing SI. Pt states my pain is so bad I don't want to be alive anymore . This RN asked patient if he had plans to end his life, pt stated not at the moment but when I do I will tell you first . PRN Dilaudid given at 0918. 1:1 sitter ordered for safety. Pt currently in bed eyes closed RR even non-labored.
--- NOTE | 2024-07-23 13:00 | MHC.CARE ---
Pt does not meet criteria for IPLOC at this time secondary to denying SI and not presenting as an imminent risk. Pt declined all referrals. Pt is cleared by the CARE team and Dr. Alegria is informed.
[2024-07-23 15:52] VITALS: BP 127/79; PULSE 57; RESP 18; TEMP 37.1; O2SAT 98
--- NOTE | 2024-07-23 16:07 | HO.PM.IMPN ---
Subjective Subjective Date of Service: 07/23/24 Interval History: Continues to complain of pain despite high levels Dilaudid. Seen multiple times sleeping by staff. When questioned voiced suicidal intention Review of Systems Unable to obtain Physical Exam Vital Signs: Vital Signs: Last Vital Signs Temp 98.7 F 07/23/24 15:52 Pulse 57 07/23/24 15:52 Resp 18 07/23/24 15:52 BP 127/79 07/23/24 15:52 Pulse Ox 98 07/23/24 15:52 O2 Del Method Room Air 07/23/24 15:52 O2 Flow Rate 3 07/19/24 17:14 BMI result Body Mass Index 23.2 Const: Other: Awake alert no acute distress Resp: Other: Clear to auscultation bilaterally rales rhonchi or wheezes Cardio: Other: No S4; positive S1-S2; no S3 murmurs rubs or gallops GI: Other: Soft nontender nondistended normoactive bowel sounds Extrem: Other: No edema bilaterally Objective Data Active Medications Acetaminophen (Acetaminophen 325 Mg Tablet) 650 mg PO Q6H PRN PRN Reason: Pain, Mild (Pain Scale 1-3), fever or headache Last Admin: 07/22/24 14:16 Dose: 650 mg Documented By: LOURDES Alprazolam (Alprazolam 0.5 Mg Tablet) 0.5 mg PO DAILY PRN PRN Reason: Anxiety Last Admin: 07/22/24 14:16 Dose: 0.5 mg Documented By: LOURDES Amoxicillin/Clavulanate Potassium (Amoxicillin/Potassium Clav 875 Mg Tablet) 875 mg PO Q12H [facility] Last Admin: 07/23/24 08:09 Dose: 875 mg Documented By: JAIME Atorvastatin Calcium (Atorvastatin Calcium 10 Mg Tablet) 10 mg PO BEDTIME [facility] Last Admin: 07/22/24 19:33 Dose: 10 mg Documented By: ZOË Belladonna Alkaloids/Opium (Opium/Belladonna 60/16.2 Mg Supp.Rect) 1 supp [place] BID PRN PRN Reason: bladder spasm Calcium Carbonate (Calcium Carbonate 750 Mg Tab.Chew) 750 mg PO Q4H PRN PRN Reason: Heartburn Piperacillin Sod/Tazobactam (Sod 3.375 gm/ Sodium Chloride) 50 mls @ 100 mls/hr IV Q6H [facility] Last Infusion: 07/23/24 13:01 Dose: Infused Documented By: JAIME Ketorolac Tromethamine (Ketorolac Tromethamine 30 Mg/Ml Vial) 30 mg IVPUSH Q6H [facility] Stop: 07/23/24 19:31 Last Admin: 07/23/24 13:08 Dose: 30 mg Documented By: JAIME Lidocaine HCl (Lidocaine 4 % Cream Kit) 1 appl TOPICAL DAILY [facility]; Protocol Last Admin: 07/23/24 08:10 Dose: Not Given Documented By: JAIME Non-Admin Reason: Patient Refused Magnesium Hydroxide (Milk Of Magnesia 30 Ml Oral.Susp) 30 ml PO DAILY PRN PRN Reason: Constipation Melatonin (Melatonin 3 Mg Tablet) 6 mg PO BEDTIME PRN PRN Reason: Insomnia Naloxone HCl (Naloxone Hcl 0.4 Mg/Ml Vial) 0.1 mg IVPUSH Q5M PRN PRN Reason: Respiratory Rate < 10 Ondansetron HCl (Ondansetron Hcl 4 Mg/2 Ml Vial) 4 mg IVPUSH Q4H PRN PRN Reason: Nausea and Vomiting Last Admin: 07/19/24 05:22 Dose: 4 mg Documented By: LEXIE Polyethylene Glycol (Polyethylene Glycol 3350 17 Gm Powd.Pack) 17 gm PO DAILY [facility] Last Admin: 07/23/24 08:09 Dose: 17 gm Documented By: JAIME Psyllium Hydrophilic Mucilloid (Psyllium Seed 3.7 Gm Packet) 3.7 gm PO DAILY [facility] Last Admin: 07/23/24 08:09 Dose: 3.7 gm Documented By: JAIME Senna/Docusate Sodium (Sennosides/Docusate Sodium Tablet) 2 tab PO BID [facility] Last Admin: 07/23/24 08:09 Dose: 2 tab Documented By: JAIME Sertraline HCl (Sertraline Hcl 100 Mg Tablet) 100 mg PO DAILY [facility] Last Admin: 07/23/24 08:09 Dose: 100 mg Documented By: JAIME Sodium Chloride (0.9 % Sodium Chloride Flush 3 Ml Syringe) 3 ml IVFLUSH QSHIFT [facility] Last Admin: 07/23/24 08:10 Dose: 3 ml Documented By: JAIME Tizanidine HCl (Tizanidine Hcl 4 Mg Tablet) 4 mg PO Q8H [facility] Last Admin: 07/23/24 10:30 Dose: Not Given Documented By: JAIME Non-Admin Reason: pt drowsy Labs 07/23/24 05:03 07/23/24 05:03 Labs: Laboratory Results - last 24 hr 07/23/24 05:03 MCV 87.4 MCH 29.7 MCHC 34.0 RDW 13.1 Plt Count 211 MPV 10.3 Immature Gran % (Auto) 0.3 Neut % (Auto) 61.6 Lymph % (Auto) 22.4 [place] % (Auto) 10.4 Eos % (Auto) 4.6 H Baso % (Auto) 0.7 Lymph # (Auto) 1.7 [place] # (Auto) 0.8 Eos # (Auto) 0.4 Baso # (Auto) 0.1 Abs Immat Gran (auto) 0.02 Absolute Neuts (auto) 4.8 Absolute Nucleated RBC 0.000 Nucleated RBC % (auto) 0.0 Anion Gap 14 Estim Creat Clear Calc 110.6 Estimated GFR > 60 Fasting Glucose 101 H Calcium 9.6 Total Bilirubin 0.7 AST 14 ALT 20 Alkaline Phosphatase 63 Total Protein 6.6 Albumin 4.2 Assessment and Plan (1) Opiate abuse, continuous: Status: Acute Plan d4 64yo M with 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 Suicidal ideation -seen by care team. Care team note reviewed. Talked with patient sister.. Patient has a long history of opiate abuse with drug-seeking behavior. States this has been going on for years. Please see care note for detail. When questioned about this patient adamantly denies opioid abuse. This insurance underwriter stated to patient that given all the nursing and VASCULAR ULTRASOUND TECHNOLOGIST notes the patient is sleeping intermittently and not complaining of pain along with discussion with care team that I will be stopping all his IV meds at this time. He then voiced that he wanted to sign out AMA. Returned to patient and offered oral Oxy q.6 as a weaned for 24 hours given history of opiate use here. Patient denied wean; he adamantly refused wean. At this point in time he will be observed 24 hours and DC in the a.m.. We will be offered addiction Medicine in a.m. 2. Chronic prostatitis/hx anal fissure - POD2 right lateral internal sphincterotomy for hypertonic sphincter - seen by surgery this a.m.; no acute issues secondary to sphincterotomy 2.Mild diverticulitis -clinically improving -refusing Augmentin Full code Pneumatics DC in a.m. \ Quality Stroke Does the patient have a stroke diagnosis?: No VTE Prior VTE?: No VTE Risk Level:: Medical - moderate - high VTE Device Contraindication: N/A - Device Ordered VTE Drug Contraindication: N/A - Med Ordered
--- NOTE | 2024-07-23 16:13 | PC.NURSE ---
Per Dr. Alegria pt is not to receive narcotics at this time, please see provider note for details. Pt made aware and agreeable to plan. Warm blankets applied to lower back and abd for pain relief.
--- NOTE | 2024-07-23 16:21 | MHC.CM.PN ---
Per MD rounds Care Team consult ordered. Care Team documentation states that patient does not qualify for IPLOC. CM will follow. Discharge planned tomorrow AM. Home self care, private transport.
[2024-07-23] MEDS: Atorvastatin Calcium 10 MG TABLET PO (20:01)
[2024-07-23] MEDS: TiZANidine HCL 4 MG TABLET PO (20:04)
[2024-07-24] MEDS: TiZANidine HCL 4 MG TABLET PO (02:42)
[2024-07-24] MEDS: 0.9 % Sodium Chloride Flush 3 ML SYRINGE IVFLUSH ×2 (02:42→08:11)
[2024-07-24] MEDS: Piperacillin Sodium/Tazobactam 3.375 GM in 0.9 % Sodium Chloride 50 ML IV ×2 (02:43→05:24)
--- NOTE | 2024-07-24 07:03 | HO.STUDPN_ITS ---
Subjective Subjective Date of Service: 07/24/24 <Hillarysa Pimentel - Last Filed: 07/24/24 08:32> 07/26/24 <Ivonne Oswald PA-C - Last Filed: 07/26/24 14:23> Interval History: Pt was asleep upon entering room. Pt reports that he is still in excruciating pain since this Monday. He is still having burning and pain at his rectum and prostate. Burning with urination, no blood present when urinating. Loose bowel movements. Pt was frustrated that he had to request for his Alpazolam medication yesterday as he has been given this by his pcp and takes it daily. Pt was shaking in bed when expressing his frustration and pain. <[facility] - Last Filed: 07/24/24 08:32> Review of Systems Deffered <[facility] - Last Filed: 07/24/24 08:32> Physical Exam 2 Vital Signs: Vital Signs: Last Vital Signs Temp 98.7 F 07/23/24 15:52 Pulse 57 07/23/24 15:52 Resp 18 07/23/24 15:52 BP 127/79 07/23/24 15:52 Pulse Ox 98 07/23/24 15:52 O2 Del Method Room Air 07/23/24 15:52 O2 Flow Rate 3 07/19/24 17:14 BMI result Body Mass Index 23.2 <[facility] - Last Filed: 07/24/24 08:32> Const: Other: Was asleep upon entering room, pt is in distress <[facility] - Last Filed: 07/24/24 08:32> Resp: Other: normal repiratory effort <[facility] Last Filed: 07/24/24 08:32> Objective Data Active Medications Acetaminophen (Acetaminophen 325 Mg Tablet) 650 mg PO Q6H PRN PRN Reason: Pain, Mild (Pain Scale 1-3), fever or headache Last Admin: 07/22/24 14:16 Dose: 650 mg Documented By: LOURDES Amoxicillin/Clavulanate Potassium (Amoxicillin/Potassium Clav 875 Mg Tablet) 875 mg PO Q12H [facility] Last Admin: 07/23/24 20:01 Dose: 875 mg Documented By: JACKIE Atorvastatin Calcium (Atorvastatin Calcium 10 Mg Tablet) 10 mg PO BEDTIME [facility] Last Admin: 07/23/24 20:01 Dose: 10 mg Documented By: JACKIE Belladonna Alkaloids/Opium (Opium/Belladonna 60/16.2 Mg Supp.Rect) 1 supp [place] BID PRN PRN Reason: bladder spasm Calcium Carbonate (Calcium Carbonate 750 Mg Tab.Chew) 750 mg PO Q4H PRN PRN Reason: Heartburn Piperacillin Sod/Tazobactam (Sod 3.375 gm/ Sodium Chloride) 50 mls @ 100 mls/hr IV Q6H [facility] Last Infusion: 07/24/24 05:55 Dose: Infused Documented By: JACKIE Lidocaine HCl (Lidocaine 4 % Cream Kit) 1 appl TOPICAL DAILY [facility]; Protocol Last Admin: 07/23/24 08:10 Dose: Not Given Documented By: JAIME Non-Admin Reason: Patient Refused Magnesium Hydroxide (Milk Of Magnesia 30 Ml Oral.Susp) 30 ml PO DAILY PRN PRN Reason: Constipation Melatonin (Melatonin 3 Mg Tablet) 6 mg PO BEDTIME PRN PRN Reason: Insomnia Naloxone HCl (Naloxone Hcl 0.4 Mg/Ml Vial) 0.1 mg IVPUSH Q5M PRN PRN Reason: Respiratory Rate < 10 Ondansetron HCl (Ondansetron Hcl 4 Mg/2 Ml Vial) 4 mg IVPUSH Q4H PRN PRN Reason: Nausea and Vomiting Last Admin: 07/19/24 05:22 Dose: 4 mg Documented By: LEXIE Polyethylene Glycol (Polyethylene Glycol 3350 17 Gm Powd.Pack) 17 gm PO DAILY [facility] Last Admin: 07/23/24 08:09 Dose: 17 gm Documented By: JAIME Psyllium Hydrophilic Mucilloid (Psyllium Seed 3.7 Gm Packet) 3.7 gm PO DAILY [facility] Last Admin: 07/23/24 08:09 Dose: 3.7 gm Documented By: JAIME Senna/Docusate Sodium (Sennosides/Docusate Sodium Tablet) 2 tab PO BID [facility] Last Admin: 07/23/24 20:01 Dose: 2 tab Documented By: JACKIE Sertraline HCl (Sertraline Hcl 100 Mg Tablet) 100 mg PO DAILY [facility] Last Admin: 07/23/24 08:09 Dose: 100 mg Documented By: JAIME Sodium Chloride (0.9 % Sodium Chloride Flush 3 Ml Syringe) 3 ml IVFLUSH QSHIFT [facility] Last Admin: 07/24/24 02:42 Dose: 3 ml Documented By: JACKIE Tizanidine HCl (Tizanidine Hcl 4 Mg Tablet) 4 mg PO Q8H [facility] Last Admin: 07/24/24 02:42 Dose: 4 mg Documented By: JACKIE <Hillary Ahmad - Last Filed: 07/24/24 08:32> Labs CBC & Chem 7: 07/23/24 05:03 07/23/24 05:03 <Hillary Ahmad - Last Filed: 07/24/24 08:32> Labs: Laboratory Results - last 24 hr 07/23/24 05:03 Anion Gap 14 Estim Creat Clear Calc 110.6 Estimated GFR > 60 Fasting Glucose 101 H Calcium 9.6 Total Bilirubin 0.7 AST 14 ALT 20 Alkaline Phosphatase 63 Total Protein 6.6 Albumin 4.2 <Hillary Ahmad - Last Filed: 07/24/24 08:32> Assessment and Plan (1) Suicidal ideation: Status: Acute <Hillary Ahmad - Last Filed: 07/24/24 08:32> Assessment and Plan: As noted in previous note. Plan to have pt follow up with addiction medication. Possibly have pt follow up with psyc. <Hillary Ahmad - Last Filed: 07/24/24 08:32> (2) Rectal pain: Status: Acute <Hillary Ahmad - Last Filed: 07/24/24 08:32> Assessment and Plan: Continue current pain management pt is currently taking hydromorphone hcl 1mg IV Q2H prn, Naloxone hcl 0.1mg iv push Q4M PRN, , consult with addiction medication. Continue alparzolam for anxiety symptoms. <Hillary Ahmad - Last Filed: 07/24/24 08:32> Quality Stroke Does the patient have a stroke diagnosis?: No <Hillary Ahmad - Last Filed: 07/24/24 08:32> VTE Prior VTE?: No <Hillary Ahmad - Last Filed: 07/24/24 08:32> VTE Risk Level:: Medical - moderate - high <Hillary Ahmad - Last Filed: 07/24/24 08:32> VTE Device Contraindication: N/A - Device Ordered <Hillary Ahmad - Last Filed: 07/24/24 08:32> VTE Drug Contraindication: N/A - Med Ordered <Hillary Ahmad - Last Filed: 07/24/24 08:32>
[2024-07-24 07:46] VITALS: BP 156/77; PULSE 58; RESP 18; TEMP 36.8; O2SAT 98
[2024-07-24] MEDS: Sertraline HCL 100 MG TABLET PO (08:09)
[2024-07-24] MEDS: Amoxicillin/Potassium Clav 875 MG TABLET PO (08:09)
[2024-07-24] MEDS: Acetaminophen 325 MG TABLET 650 MG PO (08:10)
--- NOTE | 2024-07-24 08:51 | PM.DS ---
DS: Providers Provider Date of Service: 07/24/24 Date of admission: 07/18/24 18:29 Date of discharge: 07/24/24 Primary care physician: Alex Johnson MD Consults: 07/19/24 07:09 Consult to General Surgery Routine Consulting Provider: Samir Call Reason for consultation: anal pain, hx fissure s/p sphincterotomy. May need EUA 07/21/24 10:10 Consult to Urology Routine Consulting Provider: [facility] Reason for consultation: severe penile/perineal pain radiating from anus; persistent p sphincerotomy 07/23/24 10:48 Consult to Care Team Stat Comment: Reason for consultation: Suicidal Ideation. Please me for details.Thanks DS: Diagnosis Discharge Diagnosis (1) Suicidal ideation: Status: Acute (2) Rectal pain: Status: Acute DS: Summary Hospital Course Hospital Course: 64yo M with hx of anal fissure s/p lateral sphincterotomy at [facility] [place] 2023 and has had anal pain since but over the last 3 weeks it has become much worse. It is severe and radiates from the anus to the penis, stabbing/sharp/pulsating in nature. No diarrhea or constipation; he is on stool softeners. He has no relief from oxycodone. No dysuria, scrotal swelling, or testicular pain. No BRBPR or melena. In the ED, he has 10/10 pain despite total of 4 mg of morphine IV, 50 mcg of fentanyl IV, and 2 mg of hydromorphone IV. He did not tolerate ULISSES. Pelvic CT with contrast showed mild diverticulitis mid-sigmoid; no perforation or abscess; incidental R kidney cyst. Hospital course Admitted to general medical floor and started on Augmentin for mild diverticulitis. Seen in consultation by surgery and on 07/19/2024 underwent a right lateral internal sphincterotomy under anesthesia. In the postoperative. His pain was extremely poorly controlled requiring high doses of Dilaudid as well as oxycodone. Consult was obtained from urology who recommended belladonna suppository; these were on back order and he was given crushed Valium per rectum without response. Urology examined patient felt this was acute on chronic prostatitis and recommended oral Augmentin. Urology offered to follow up as outpatient. Patient still complained of 10/10 pain inconsistent with exams. CTA of the pelvis was done which failed to demonstrate any abscess or fluid collection. He was reexamined by surgery who felt there was no correlation between exam and pain. He continued to require escalating doses pain meds; when told this would have to be tapered down, he did voices suicidal ideation. He was seen by the care team (please see their note for details). Care team felt patient did not meet criteria for inpatient therapy at this time. Notes from [facility] were reviewed. Patient presented with the same complaints 1 year ago to PCP and has received opiates for the same. Despite his complaints of ongoing pain, staff noted patient to be sleeping soundly throughout the night and had to be woken. Given such, I informed patient that was my responsibility to decrease to DC all of his opiates as this clinical picture was consistent with drug seeking behavior. Patient offered addiction Medicine but stated he did not have a problem with opiates. Related to patient's and given all this information clinically and the picture it presented there was no option but to DC his narcotics. I offered taper however he declined. Patient was observed 24 hours without incident. On the day of discharge, he was demonstrating no withdrawal symptoms and was quite pleasant. He agreed to oral Augmentin as per Urology recommendations. Faint will follow-up with his PCP next available Time Attestation Discharge Coordination Time (in mins): 35 Quality: Safe Use of Opioids Does Pt have an Active Cancer Diagnosis on the Problem List?: No Quality: Stroke Does the patient have a stroke diagnosis?: No Physical Exam Vital Signs: Vital Signs: Last Vital Signs Temp 98.2 F 07/24/24 07:46 Pulse 58 07/24/24 07:46 Resp 18 07/24/24 07:46 BP 156/77 H 07/24/24 07:46 Pulse Ox 98 07/24/24 07:46 O2 Del Method Room Air 07/24/24 07:46 O2 Flow Rate 3 07/19/24 17:14 BMI result Body Mass Index 23.2 Const: Other: Awake alert no acute distress Resp: Other: Clear to auscultation bilaterally rales rhonchi or wheezes Cardio: Other: No S4; positive S1-S2; no S3 murmurs rubs or gallops GI: Other: Soft nontender nondistended normoactive bowel sounds Extrem: Other: No edema bilaterally Discharge Plan Discharge Anticipated Discharge Date/Time: 07/24/24 08:46 Patient Disposition: Home, Self-Care Discharge Diagnosis: Chronic pelvis pain/chronic prostatitis Referrals: Alex Johnson MD [Primary Care Provider] - 1 Week Discharge Medications: New amoxicillin-pot clavulanate 875-125 mg Tablet 1 tab PO Q12H Qty: 60 0RF Continued tizanidine 4 mg tablet 4 mg PO Q8H docusate sodium 100 mg capsule 200 mg PO BEDTIME polyethylene glycol 3350 17 gram/dose powder 17 g PO DAILY alprazolam 0.5 mg tablet 0.5 mg PO DAILY PRN (Reason: Anxiety) oxycodone 5 mg tablet 5 mg PO BID PRN (Reason: Pain) simvastatin 10 mg tablet 10 mg PO BEDTIME sertraline 100 mg tablet 100 mg PO DAILY Discontinued doxycycline monohydrate 100 mg tablet 100 mg PO BID Discharge Orders: Discharge Order (Routine); Ordered 07/24/24 Ordered By: Joe Alegria Diet: Advance to usual diet Activity on Discharge: As tolerated Stand Alone Forms: Patient Portal Discharge page Print Language: Comoran Care Plan Goals: You have been prescribed Augmentin for acute on chronic prostatitis. Take twice daily for 1 month. You need to follow up with Urology to dictate further treatments Health Concerns: Resume all other medications as taken prior to the hospital Plan of Treatment: Follow up with your PCP next available Assessment: See discharge summary
--- NOTE | 2024-07-24 09:25 | MHC.CM.PN ---
Addendum entered by Lydia Williamson 07/24/24 15:35: IMM 07/24/24 A Lift was set up for transport home. Original Note: Patient is discharged to home self-care. He will arrange transport to home.
== END 2024-07-24 09:58 | disposition home or self-care (01) | DRG 348 ==
LOC: HO.ED 16:34 → HO.EDOVER 18:32 → HO.S3 07-19 04:28
PROVIDERS: Physician Assistant; Surgery; Admitting Provider Family Medicine; Emergency Provider Student in an Organized Health Care Education/Training Program; PCP Internal Medicine; Visit Provider Hospitalist
PROC: 0D8R0ZZ Division of Anal Sphincter, Open Approach (ICD-10-PCS; principal; 2024-07-19 15:30)
DX: K62.89 Other specified diseases of anus and rectum (principal); K57.32 Diverticulitis of large intestine without perforation or abscess without bleeding; R45.851 Suicidal ideations; N41.1 Chronic prostatitis; E78.5 Hyperlipidemia, unspecified; F39 Unspecified mood [affective] disorder; F17.210 Nicotine dependence, cigarettes, uncomplicated; Z71.6 Tobacco abuse counseling; Z79.899 Other long term (current) drug therapy
CPT/HCPCS: 36415; 72193; 80053; 81003; 82272; 85025; 85652; 86140; 99285; J0131; J0330; J1100; J1170; J1596; J1885; J2270; J2405; J2543; J2704; J2795; J3010; J7120; Q9967; S9485

== ENCOUNTER → 2024-07-18 18:29 | Outpatient (BNV) | payer MEDICARE, SELFPAY | PROVIDERS: Admitting Provider Family Medicine; Emergency Provider Student in an Organized Health Care Education/Training Program; PCP Internal Medicine; Visit Provider Family Medicine | DX: F11.10 Opioid abuse, uncomplicated (principal) | CPT/HCPCS: 99222; 99232; 99239 ==

== ENCOUNTER → 2024-07-18 18:29 | Outpatient (BNV) | payer MEDICARE, SELFPAY | PROVIDERS: Admitting Provider Family Medicine; Emergency Provider Student in an Organized Health Care Education/Training Program; PCP Internal Medicine; Visit Provider Urology | DX: N41.1 Chronic prostatitis (principal); G89.4 Chronic pain syndrome | CPT/HCPCS: 99222 ==

== ENCOUNTER → 2024-07-18 18:29 | Outpatient (BNV) | payer MEDICARE, SELFPAY | PROVIDERS: Admitting Provider Family Medicine; Emergency Provider Student in an Organized Health Care Education/Training Program; PCP Internal Medicine; Visit Provider Surgery | DX: R45.851 Suicidal ideations (principal); K62.89 Other specified diseases of anus and rectum | CPT/HCPCS: 46080; 99024; 99222; 99499 ==

== ENCOUNTER 2024-08-03 11:03 | Emergency (ER) | payer MEDICARE, SELFPAY ==
[2024-08-03 11:08] VITALS: BP 117/91; PULSE 110; RESP 18; TEMP 36.6; O2SAT 96; BMI 22.7
--- NOTE | 2024-08-03 11:13 | ED_ITS ---
HPI - Male Genitourinary General Chief complaint: Urogenital-Male Stated complaint: penis pain Time Seen by Provider: 08/03/24 11:13 Source: patient Mode of arrival: ambulatory Limitations: no limitations History of Present Illness ED Provider: Jim HPI Narrative: Patient is a 64-year-old male with history of hypercholesterolemia, recent anal fissure repair with Dr. Call on 07/19 presenting to the emergency department with complaint of severe pain to his urethra, worse on the left side. States his anal pain has improved since surgery, but the urethral pain has persisted. He is circumcised, he is not diabetic. Denies recent unprotected intercourse. Denies discharge or drainage. Denies scrotal or testicular pain. Reports burning with urination, denies urgency, frequency, back or flank pain, fevers, nausea or vomiting. MD Complaint: other Onset (ago): week(s) Duration: constant Location: penis Severity: severe Quality: burning Relieving factors: none Exacerbating factors: urination Associated symptoms: Reports denies other symptoms Related Data Home Medications ?Medication ?Instructions ?Recorded ?Confirmed alprazolam 0.5 mg tablet 0.5 mg PO DAILY PRN Anxiety 03/14/24 07/18/24 oxycodone 5 mg tablet 5 mg PO BID PRN Pain 03/14/24 07/18/24 sertraline 100 mg tablet 100 mg PO DAILY 03/14/24 07/18/24 simvastatin 10 mg tablet 10 mg PO BEDTIME 03/14/24 07/18/24 docusate sodium 100 mg capsule 200 mg PO BEDTIME 07/18/24 07/18/24 polyethylene glycol 3350 17 17 g PO DAILY 07/18/24 07/18/24 gram/dose oral powder tizanidine 4 mg tablet 4 mg PO Q8H 07/18/24 07/18/24 Previous Rx's ?Medication ?Instructions ?Recorded amoxicillin 875 mg-potassium 1 tab PO Q12H #60 tabs 07/24/24 clavulanate 125 mg tablet doxycycline hyclate 100 mg capsule 100 mg PO BID #13 caps 08/03/24 Allergies Allergy/AdvReac Type Severity Reaction Status Date / Time No Known Allergies Allergy Verified 08/03/24 11:10 Review of Systems Review of Systems: As per HPI. Yes all other systems are reviewed and are negative Constitutional: Constitutional: Reports as per HPI PMFSH Past Medical History Medical History Hypercholesteremia Anal pain Surgical History Hx of surgical procedure (~09/11/23) Social History Social History Household Members: None Housing: Apartment Alcohol intake: former Patient Tobacco Use Status: Current everyday Tobacco user Tobacco use type: Cigarette Cigarette Packs Per Day: 1.5 Cigarettes Per Day: 30.0 Substance Use Type: Marijuana Advance Directives: No Advance Directives Information Provided: Yes service: No Physical Exam Vital Signs: Vital Signs: Last Vital Signs Temp 98 F 08/03/24 11:08 Pulse 110 H 08/03/24 11:08 Resp 18 08/03/24 11:08 BP 117/91 H 08/03/24 11:08 Pulse Ox 96 08/03/24 11:08 O2 Del Method Room Air 08/03/24 11:08 BMI result Body Mass Index 22.7 Vital signs have been reviewed and appear to be correct. Blood pressure normal. Heart rate slightly tachycardic. Respiratory rate normal. Temperature normal. Oxygen saturation normal. Const: General: cooperative, healthy appearing and no acute distress Orientation/consciousness: oriented to person, oriented to place, oriented to time and patient oriented x3 Limitations: no limitations HEENT: Head: Yes normocephalic and Yes atraumatic Ears: external ears normal General nose exam: Normal external nose present Face and sinus: Yes face symmetric Mouth: oropharynx normal and moist mucous membranes Throat: Yes uvula midline Eyes: Pupils: Equal, round and reactive pupils present Neck: Neck: Yes normal visual inspection and Yes supple Resp: Effort & Inspection: normal respiratory effort and able to speak in complete sentences Auscultation: clear to auscultation bilaterally Cardio: Rate: regular rate Rhythm: regular rhythm Heart sounds: S1 normal heart sound present and S2 normal heart sound present GI: Palpation (GI): Soft to palpation and nontender Auscultation: normoactive bowel sounds : Other: Exam chaperoned by MARIELLE Mckoy General: Yes no CVA tenderness Penis: normal penis and circumcised Meatus: Erythema at meatus (very slight left sided erythema) Scrotum: scrotum normal Testes: Testes normal Back/Spine/Pelvis: Back: no CVA tenderness Skin: General skin exam: elasticity normal and turgor normal Neuro: General: oriented to person, oriented to place, oriented to time, patient oriented x3, moves all extremities, no focal motor deficits and CN's II- XI intact bilaterally Cranial nerves: Yes Equal, round and reactive pupils present Cognition (Neuro): normal cognition Extrem: General: Yes full ROM, Yes no pedal edema and Yes no calf tenderness Psych: Mental Status: mental status grossly normal Affect: normal affect Thought process: Normal thought process present Medications Administered Discontinued Medications Generic Name Dose Route Start Last Admin Trade Name Freq PRN Reason Stop Dose Admin Lidocaine HCl 10 ml 08/03/24 11:30 08/03/24 11:39 Lidocaine Hcl 2 % Urojet 10 Ml Jel.Pf.Prieto TOPICAL 08/03/24 11:31 10 ml ONCE ONE Administration Medical Decision Making Medical Decision Making [facility] Narrative: Patient is a 64-year-old male with history of hypercholesterolemia, recent anal fissure repair with Dr. Call on 07/19 presenting to the emergency department with complaint of severe pain to his urethra, worse on the left side. On exam patient is awake, A+Ox3, VS WNL, afebrile, normal neurological exam without focal deficits, physical exam findings as above. Given reported symptoms and physical exam findings, initial differential includes urethritis, balanitis, UTI, STI. Urinalysis notable only for trace leukocytes. Will treat patient for urethritis at this time with ceftriaxone and doxycycline, CT NG pending and patient will be notified with any positive results. Advised patient to continue to assess the area daily and return if he develops new redness, swelling, discharge. Will refer to urology for follow up as needed. Return precautions discussed at bedside. Patient verbalized understanding of and agreement with plan. Differential Diagnosis Differential Diagnoses: The differential diagnosis associated with the presentation includes As per [facility] Lab Data [facility] Lab Attestation statement: I reviewed the patient's lab results. As per [facility] Labs: Lab Results 08/03/24 Range/Units 11:49 Urine Color Yellow Urine Appearance Clear Urine pH 6.0 (5.0-9.0) Ur Specific [place] 1.025 (1.005-1.025) Urine Protein Trace (Neg-Trace) mg/dL Urine Glucose (UA) Negative (Negative) mg/dL Urine Ketones Negative (Negative) mg/dL Urine Blood Negative (Negative) Urine Nitrite Negative (Negative) Ur Leukocyte Esterase Trace H (Negative) Urine RBC 0-2 (0-2) /HPF Urine WBC 0-5 (0-5) /HPF Ur Squamous Epith Cells 0-2 (0-2) /HPF Urine Bacteria None Seen (None Seen) Hyaline Casts 6-10 (0-2) /LPF Granular Casts Present External Record Review External record reviewed: Inpatient record, Office record and Outpatient record Prescription Management I considered prescription management with: Antibiotic Discharge Plan Discharge Clinical Impression: Urethritis Patient Disposition: Home, Self-Care Additional Instructions: You were evaluated in the emergency department today for urethral pain and are being treated for urethritis. You were tested for sexually transmitted infections in the emergency department today, and the results are pending, you will be notified with any positive results. You should abstain from intercourse until 7 days after your last antibiotic dose. Follow up with urology outpatient . Call their office to schedule an appointment, they will not call you. Return to the emergency department if you are unable to urinate, develop fever, persistent vomiting, blood in your urine, or any other concerning symptoms. Prescriptions: New doxycycline hyclate 100 mg capsule 100 mg PO BID Qty: 13 0RF No Action tizanidine 4 mg tablet 4 mg PO Q8H docusate sodium 100 mg capsule 200 mg PO BEDTIME polyethylene glycol 3350 17 gram/dose powder 17 g PO DAILY amoxicillin-pot clavulanate 875-125 mg Tablet 1 tab PO Q12H Qty: 60 0RF alprazolam 0.5 mg tablet 0.5 mg PO DAILY PRN (Reason: Anxiety) oxycodone 5 mg tablet 5 mg PO BID PRN (Reason: Pain) simvastatin 10 mg tablet 10 mg PO BEDTIME sertraline 100 mg tablet 100 mg PO DAILY Referrals: [facility] [Provider Group] Print Language: British
[2024-08-03] MEDS: Lidocaine HCl 2 % Urojet 10 ML JEL.PF.APP TOPICAL (11:39)
[2024-08-03 12:07] LABS: Appearance Urine Clear; Color Urine Yellow; Glucose Urine UA Negative (Negative); Leukocyte Esterase Urine Trace (Negative); Nitrite Urine Negative (Negative); Specific Gravity - Urine 1.025 (1.005-1.025); UMIC TRIGGER UACC YES; Urine Blood Negative (Negative); Urine Ketones Negative (Negative); Urine Protein Trace mg/dL (Neg-Trace)
[2024-08-03 12:21] LABS: Bacteria Urine None Seen (None Seen); Granular Casts Urine Present; RBC Urine 0-2 /HPF (0-2); Squamous Epithelial Cell Urine 0-2 /HPF (0-2); WBC Urine 0-5 /HPF (0-5)
[2024-08-03] MEDS: Doxycycline Monohydrate 100 MG CAPSULE PO (12:55)
[2024-08-03] MEDS: cefTRIAXone sodium 500 MG, Lidocaine HCl 1 % MPF 1 ML IM (12:56)
[2024-08-03 13:01] VITALS: BP 117/91; PULSE 110; RESP 18; TEMP 36.6; O2SAT 96
[2024-08-03 13:28] LABS: CT PCR NOT DETECTED (Not Detect.); NG PCR NOT DETECTED (Not Detect.)
== END 2024-08-03 13:02 | disposition home or self-care (01) ==
PROVIDERS: Registered Nurse Emergency; Emergency Provider Emergency Medicine; PCP Internal Medicine
DX: N34.2 Other urethritis (principal); N48.89 Other specified disorders of penis; E78.00 Pure hypercholesterolemia, unspecified; F17.210 Nicotine dependence, cigarettes, uncomplicated
CPT/HCPCS: 81001; 81003; 87491; 87591; 96372; 99282; 99284; J0696; J2003

== ENCOUNTER 2024-08-21 08:43 | Emergency (ER) | payer MEDICARE, SELFPAY ==
[2024-08-21 08:45] VITALS: BP 99/72; PULSE 111; RESP 18; TEMP 36.7; O2SAT 99; BMI 19.8
--- NOTE | 2024-08-21 09:24 | ED_ITS ---
HPI - General Adult General Chief complaint: General Medical Stated complaint: rectum/groin pain Time Seen by Provider: 08/21/24 09:24 Source: patient Mode of arrival: ambulatory Limitations: no limitations History of Present Illness ED Provider: Rica Fox PA-C HPI narrative: Patient is a 64 year old assigned male at with a history of chronic rectal pain presenting to the emergency department today with acute on chronic rectal pain. Patient states that he has had this pain intermittently for months, had a procedure done but it has not helped. Patient states that he has been seen at numerous emergency departments for this and no one is willing to help / figure out what is causing the pain. Patient denies any dizziness, lightheadedness, abdominal pain, nausea, vomiting, fever, chills, blurry vision, double vision, loss of vision, chest pain, difficulty breathing, shortness of breath, back pain, night sweats, pain with urination, increased urinary frequency, increased urinary urgency, blood in his urine or stool, syncope or a near syncopal episode, recent trauma or falls, bowel incontinence, bladder incontinence, or any other complaints at this time. Onset (ago): month(s) Relieving factors: none Exacerbating factors: none Associated symptoms: denies other symptoms Treatments prior to arrival: other (multiple ER visits + opiate medications) Related Data Home Medications ?Medication ?Instructions ?Recorded ?Confirmed alprazolam 0.5 mg tablet 0.5 mg PO DAILY PRN Anxiety 03/14/24 07/18/24 oxycodone 5 mg tablet 5 mg PO BID PRN Pain 03/14/24 07/18/24 sertraline 100 mg tablet 100 mg PO DAILY 03/14/24 07/18/24 simvastatin 10 mg tablet 10 mg PO BEDTIME 03/14/24 07/18/24 docusate sodium 100 mg capsule 200 mg PO BEDTIME 07/18/24 07/18/24 polyethylene glycol 3350 17 17 g PO DAILY 07/18/24 07/18/24 gram/dose oral powder tizanidine 4 mg tablet 4 mg PO Q8H 07/18/24 07/18/24 Previous Rx's ?Medication ?Instructions ?Recorded amoxicillin 875 mg-potassium 1 tab PO Q12H #60 tabs 07/24/24 clavulanate 125 mg tablet doxycycline hyclate 100 mg capsule 100 mg PO BID #13 caps 08/03/24 Allergies Allergy/AdvReac Type Severity Reaction Status Date / Time No Known Allergies Allergy Verified 08/21/24 08:51 Review of Systems 2 Constitutional: Constitutional: Reports no additional constitutional complaints, Denies chills, Denies fever(s) and Denies night sweats Eyes: Eyes: Reports no additional eye complaints, Denies blurry vision, Denies change in vision, Denies diplopia, Denies eye discharge, Denies loss of vision and Denies eye pain ENT: Denies dizziness Cardiovascular: Cardiovascular: Reports no additional cardiovascular complaints, Denies chest pain, Denies lightheadedness, Denies Loss of Consciousness and Denies dyspnea Respiratory: Respiratory: Reports no additional respiratory complaints and Denies dyspnea Gastrointestinal: Gastrointestinal: Reports no additional gastrointestinal complaints, Denies abdominal pain, Denies melena, Denies hematochezia, Denies change in bowel habits and Denies change in stool character Comments: rectal pain Genitourinary: Genitourinary: Reports no additional male genitourinary complaints, Denies hematuria, Denies oliguria, Denies difficulty urinating, Denies dysuria, Denies urinary frequency, Denies urinary hesitancy, Denies urinary incontinence and Denies urinary urgency Comments: penile pain Musculoskeletal: Musculoskeletal: Reports no additional musculoskeletal complaints, Denies numbness and Denies tingling Neurologic: Denies dizziness, Denies loss of vision, Denies numbness and Denies tingling Psychiatric: Psychiatric: Reports no additional psychiatric complaints Endocrine: Endocrine: Reports no additional endocrine complaints Hematologic/Lymphatic: Hematologic/Lymphatic: Reports no additional hematologic/lymphatic complaints Allergic/Immunologic: Allergic/Immunologic: Reports no additional allergic/immunologic complaints [facility] Past Medical History Attestation statement: The following information was validated with the patient. Source: old records reviewed and nursing notes reviewed Medical History Opiate abuse, continuous Chronic prostatitis/chronic pelvic pain syndrome Rectal pain Hypercholesteremia Anal pain Surgical History Hx of surgical procedure (~09/11/23) Social History Social History Household Members: None Housing: Apartment Alcohol intake: former Patient Tobacco Use Status: Current everyday Tobacco user Tobacco use type: Cigarette Cigarette Packs Per Day: 1.5 Cigarettes Per Day: 30.0 Substance Use Type: Marijuana service: No Physical Exam ED Vital Signs: Vital Signs - 24 hr 08/21/24 08:45 08/21/24 11:15 Temperature 98.1 F 98.1 F Pulse Rate 111 H 111 H Respiratory Rate 18 18 Blood Pressure 99/72 99/72 Pulse Oximetry 99 99 Oxygen Delivery Method Room Air Room Air BMI result Body Mass Index 19.8 Const General: cooperative, no acute distress, alert and awake Nutritional Appearance: well nourished Orientation/consciousness: patient oriented x3 Limitations: no limitations HENMT Head: Yes normal to inspection and Yes atraumatic Ears: hearing grossly normal bilaterally and external ears normal General nose exam: Normal external nose present, no nasal discharge noted and no epistaxis Face and sinus: Yes normal facial exam, No abrasion and No laceration Mouth: Normal oral and palatal mucosa present, no drooling and no muffled voice Eyes General: appearance normal, both eyes and all related structures Periorbital: periorbital findings normal Eyelids: Yes eyelids normal Conjunctivae: conjunctivae normal Pupils: Equal, round and reactive pupils present EOM: EOMs intact bilaterally Neck Neck: Yes normal visual inspection, Yes full ROM and Yes no lymphadenopathy Chest Chest palpation & inspection: normal inspection of the chest Resp Effort & Inspection: normal respiratory effort and able to speak in complete sentences GI Inspection: Yes normal to inspection Neuro General: patient oriented x3 and moves all extremities Cranial nerves: Yes Equal, round and reactive pupils present Cognition (Neuro): normal cognition Extrem General: Yes normal to inspection, Yes full ROM and Yes capillary refill normal Psych Appearance: grossly normal Mental Status: mental status grossly normal Affect: normal affect Attitude: cooperative Thought process: Normal thought process present Thought content: Normal thought content present Insight: Good insight present (Psych) Medications Administered Discontinued Medications Generic Name Dose Route Start Last Admin Trade Name Jose Rq PRN Reason Stop Dose Admin Diazepam 5 mg 08/21/24 09:30 08/21/24 09:42 Diazepam 10 Mg/2 Ml Cartridge IVPUSH 08/21/24 09:31 5 mg STAT STA Administration Hydromorphone HCl 0.5 mg 08/21/24 09:30 08/21/24 09:42 Hydromorphone Hcl 0.5 Mg/0.5 Ml Syringe IVPUSH 08/21/24 09:31 0.5 mg ONCE ONE Administration Protocol Medical Decision Making Medical Decision Making [facility] Narrative: Patient is a 64 year old assigned male at with a history of chronic rectal pain presenting to the emergency department today with acute on chronic rectal pain. Patient's physical exam was unremarkable. Patient deferred a rectal / penile exam. Patient's blood work was unremarkable. I did an extensive chart review - including accessing the patient's [facility] records via [employer]. Patient has been seen numerous times at multiple emergency departments over the last 8 months and during that time - has had 6 CT scans of the abdomen/pelvis as well as numerous other imaging studies. None of the patient's work ups have found a clear / definitive cause for his pain. Patient was given Morphine tablets from [facility] on 08/06/2024 however, he stated this has not helped. Patient was intermittently tearful on exam - beginning to get upset when discussing his pain not being treated, but then quickly pivoting to being neutral when discussing previous examinations. Patient's examination is most consistent with acute on chronic rectal / anal pain with no clear etiology with concerns of manipulative behavior around pain management. I explained my physical exam findings as well as all test results to the patient. I answered all questions asked by the patient. Patient received IV Valium and Dilaudid which, upon re-evaluation, he stated it helped his pain. I stressed the importance of the patient taking his medication as directed (either prescribed or as the over the counter packaging recommends). I stressed the importance of the patient following up with his primary care provider and a pain specialist. I stressed the importance of the patient returning to the emergency department immediately if his symptoms were to worsen or if he were to develop any dizziness, shortness of breath, difficulty breathing, chest pain, blurry vision, loss of vision, nausea, vomiting, abdominal pain, fever, chills, back pain, or any other complaints. Patient verbalized agreement and understanding with this treatment plan and discharge. Differential Diagnosis Differential Diagnoses: The differential diagnosis associated with the presentation includes Rectal pain Anal pain Acute on chronic rectal pain Admission/Observation Consideration of admission/observation: Escalation of care including admission/observation considered Patient would have been admitted to the hospital had his work up had any findings where hospital admission was appropriate and his clinical presentation warranted hospital admission. Lab Data [facility] Lab Attestation statement: I reviewed the patient's lab results. My interpretation of these results are in the [facility] Rationale portion of this note. 08/21/24 09:39 08/21/24 09:39 Labs: Lab Results 08/21/24 Range/Units 09:39 WBC 7.0 (4.8-10.8) X10*3/uL RBC 4.81 (4.60-5.80) X10*6/uL Hgb 14.6 (14.0-18.0) g/dl Hct 42.6 (42.0-52.0) % MCV 88.6 (80.0-98.0) fL MCH 30.4 (27.0-33.0) pg MCHC 34.3 (31.0-36.0) g/dl RDW 13.0 (11.0-16.0) % Plt Count 200 (160-400) X10*3/uL MPV 9.3 L (9.4-12.4) fL Immature Gran % (Auto) 0.1 (0.0-0.4) % Neut % (Auto) 62.5 (45-73) % Lymph % (Auto) 27.2 (20-40) % [place] % (Auto) 6.6 (2-11) % Eos % (Auto) 2.7 (0-4) % Baso % (Auto) 0.9 (0-2) % Lymph # (Auto) 1.9 (1.2-4.9) X10*3/uL [place] # (Auto) 0.5 (0.1-1.2) X10*3/uL Eos # (Auto) 0.2 (0.0-0.4) X10*3/uL Baso # (Auto) 0.1 (0.0-0.2) X10*3/uL Abs Immat Gran (auto) 0.01 (0.00-0.03) X10*3/uL Absolute Neuts (auto) 4.4 (2.0-8.3) x10*3/uL Absolute Nucleated RBC 0.000 (0.0-0.012) X10*3/uL Nucleated RBC % (auto) 0.0 (0.0-0.2) /100WBC Sodium 141 (135-145) mmol/L Potassium 4.1 (3.3-5.1) mmol/L Chloride 105 (96-108) mmol/L Carbon Dioxide 27 (22-29) mmol/L Anion Gap 13 (12-20) BUN 10 (9-16) mg/dL Creatinine 0.73 (0.5-1.4) mg/dL Estim Creat Clear Calc 95.7 Estimated GFR > 60 Random Glucose 98 (60-115) mg/dL Calcium 9.3 (8.4-10.2) mg/dL Total Bilirubin 0.4 (0.0-1.0) mg/dL AST 13 (5-37) U/L ALT 16 (0-40) U/L Alkaline Phosphatase 62 (39-117) U/L Total Protein 6.8 (6.5-8.0) g/dL Albumin 4.3 (3.5-5.0) g/dL External Record Review External record reviewed: Outside ED record ([facility] Medical record visit from 08/06/2024) Tests considered The following testing was considered but not selected: I considered obtaining a CT scan of the abdomen/pelvis however, the patient has had numerous scans in the last few months. Given the patient has not had a change in condition and has a normal work up, a CT scan is not warranted at this time. I discussed this with the patient who verbalized understanding and agreement. Critical Care Time Critical Care Time Critical Care Time: Yes Total Critical Care Time: 34 Attestation: I spent 34 minutes of Critical Care Time with this patient. This does not include time spent on separately reported billable procedures. Discharge Plan Discharge Clinical Impression: Chronic rectal pain Patient Disposition: Home, Self-Care Instructions: Chronic Pain (ED) Additional Instructions: Follow up with your primary care provider and a pain specialist. Continue using the pain medication you have at home. Return to the emergency department immediately if your symptoms worsen or if you develop any dizziness, shortness of breath, difficulty breathing, chest pain, blurry vision, loss of vision, nausea, vomiting, abdominal pain, fever, chills, back pain, or any other complaints. Prescriptions: No Action doxycycline hyclate 100 mg capsule 100 mg PO BID Qty: 13 0RF tizanidine 4 mg tablet 4 mg PO Q8H docusate sodium 100 mg capsule 200 mg PO BEDTIME polyethylene glycol 3350 17 gram/dose powder 17 g PO DAILY amoxicillin-pot clavulanate 875-125 mg Tablet 1 tab PO Q12H Qty: 60 0RF alprazolam 0.5 mg tablet 0.5 mg PO DAILY PRN (Reason: Anxiety) oxycodone 5 mg tablet 5 mg PO BID PRN (Reason: Pain) simvastatin 10 mg tablet 10 mg PO BEDTIME sertraline 100 mg tablet 100 mg PO DAILY Referrals: [facility] [place] [facility] [Provider Group] (Call to establish and follow up with a pain specialist. ) Alex Johnson MD [Primary Care Provider] - Interventions: ED Discharge Assessment Last Done: 08/21/24 11:15 Discharge Date/Time: 08/21/24 11:20 Print Language: Romansh
[2024-08-21] MEDS: diazePAM 10 MG/2 ML CARTRIDGE 5 MG IVPUSH (09:42)
[2024-08-21] MEDS: HYDROmorphone HCl 0.5 MG/0.5 ML SYRINGE IVPUSH (09:42)
[2024-08-21 09:46] LABS: MANUAL DIFF FLAG NO
--- NOTE | 2024-08-21 09:48 | PC.NURSE ---
a&ox4. vss and up to date aside from being tachycardic. pt denies chest pain/palpitations/sob. pt presents to the ED c/o 10/10 anal pain radiating to penis. pt verbalizes pain x months w/ no relief from medications as well as past procedures. pt tearful upon entering room. 20gIV placed in the left AC - labs obtained/sent to lab. medication administered per provider order. no sob/wob noted. respirations even/unlabored. plan of care ongoing. call pacheco placed within reach.
[2024-08-21 09:49] LABS: Basophils Absolute Auto 0.1 X10*3/uL (0.0-0.2); Basophils Percent Auto 0.9 % (0-2); Eosinophils Absolute Auto 0.2 X10*3/uL (0.0-0.4); Eosinophils Percent Auto 2.7 % (0-4); Hematocrit 42.6 % (42.0-52.0); Hemoglobin 14.6 g/dl (14.0-18.0); Imm Gran Abs Auto 0.01 X10*3/uL (0.00-0.03); Imm Gran Pct Auto 0.1 % (0.0-0.4); Lymphocytes Absolute Auto 1.9 X10*3/uL (1.2-4.9); Lymphocytes Percent Auto 27.2 % (20-40); Mean Corpuscular HGB Conc 34.3 g/dl (31.0-36.0); Mean Corpuscular Hemoglobin 30.4 pg (27.0-33.0); Mean Corpuscular Volume 88.6 fL (80.0-98.0); Mean Platelet Volume 9.3 fL (9.4-12.4); Monocytes Absolute Auto 0.5 X10*3/uL (0.1-1.2); Monocytes Percent Auto 6.6 % (2-11); Neutrophils Absolute Auto 4.4 x10*3/uL (2.0-8.3); Neutrophils Percent Auto 62.5 % (45-73); Platelet Count 200 X10*3/uL (160-400); Red Blood Count 4.81 X10*6/uL (4.60-5.80)
[2024-08-21 10:10] LABS: Alanine Aminotransferase 16 U/L (0-40); Albumin Level 4.3 g/dL (3.5-5.0); Alkaline Phosphatase 62 U/L (39-117); Anion Gap 13 (12-20); Aspartate Amino Transferase 13 U/L (5-37); Bilirubin Total 0.4 mg/dL (0.0-1.0); Blood Urea Nitrogen 10 mg/dL (9-16); Calcium 9.3 mg/dL (8.4-10.2); Carbon Dioxide 27 mmol/L (22-29); Chloride 105 mmol/L (96-108); Creatinine Clr Calc Pharmacy 95.7; Estimated Glomerular Filt Rate > 60; Glucose Random 98 mg/dL (60-115); Potassium 4.1 mmol/L (3.3-5.1); Sodium 141 mmol/L (135-145); Total Protein 6.8 g/dL (6.5-8.0)
[2024-08-21 11:15] VITALS: BP 99/72; PULSE 111; RESP 18; TEMP 36.7; O2SAT 99
== END 2024-08-21 11:20 | disposition home or self-care (01) ==
PROVIDERS: Physician Assistant Medical; Emergency Provider Emergency Medicine Emergency Medical Services; PCP Internal Medicine
DX: K62.89 Other specified diseases of anus and rectum (principal); F11.90 Opioid use, unspecified, uncomplicated; Z79.899 Other long term (current) drug therapy
CPT/HCPCS: 36415; 80053; 85025; 96374; 96375; 99284; J1171; J3360